=== PATIENT | female | born 1995 | race Caucasian/White ===

== ENCOUNTER 2018-07-04 18:37 | Emergency (ER) | payer OTHER, SELFPAY ==
[2018-07-04 18:39] VITALS: BP 151/106; PULSE 95; RESP 17; TEMP 37.2; O2SAT 96; BMI 42.9
--- NOTE | 2018-07-04 18:59 | ED.DCSUM_ITS ---
- ER Visit Summary Date of Service: 07/04/18 Chief Complaint: Vaginal bleeding History of Present Illness: The patient is a 22 F presents to the emergency department with vaginal bleeding. Patient is approximately 10 weeks gestation. She had a positive test at [facility], but has not followed up with [facility] AND MAINTE[facility]CE [facility]. She states that about an hour ago, she began have some suprapubic cramping. She states that shortly after, she began have vaginal bleeding. She describes it as being heavier than her menstrual period. She has had some small clots. She has been one time before. She states she had a miscarriage about this time. She is only on vitamins. She denies any other medical history. Physical Examination: Vital signs reviewed General: Well-nourished, well-developed Head: Normocephalic, atraumatic Eyes: Pupils equal and reactive, extraocular muscles intact Neck, supple, no lymphadenopathy Heart: Regular rate and rhythm Respiratory: No distress, clear bilaterally Abdomen: Soft, nontender, nondistended, no peritoneal signs Back: Nontender Extremities: Nontender, no edema, no cords Skin: Normal color no rash Neuro: Alert and oriented, no focal or lateralizing deficits Test Results: [] Emergency Department Course and Treatment: The patient has no reproducible abdominal pain. Her major complaint is of cramping and bleeding. IV was established. The patient's blood type was A+. Quant was elevated at greater than 6000. Patient underwent ultrasound. It does show a yolk sac, but no poles. She has complex ovarian cyst. The patient has a history of ovarian fibroids and has had surgery for cyst removal. I do not feel that her symptoms are consistent with ectopic . She has no pain. I do feel that this is missed AB. 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 I did give her a copy of her ultrasound report. I did senior living sales counselor her that she needs to follow -up within the next 48 hours that she may need D&C. Her bleeding is stopped. She has no further pain. I do feel that she is safe for outpatient therapy at this time. She was counseled on concerning symptoms and reasons to return. Treatment Plan: [] Disposition: Discharge Impression: 1. Missed AB This note was generated with [employer] dictation software. It may contain incorrect words, spelling, and punctuation that were not noted in review of the chart prior to signing ED Disposition - Plan for ED Patient: Chief Complaint: Vag Bld, Preg Instructions: ED Miscarriage Incom Referrals: Sebas Marshall [Other] - 2 Days
[2018-07-04] MEDS: 0.9% Normal Saline 1,000 ML 1000 ML IV (19:17)
[2018-07-04 19:31] LABS: Mucous, Urine 0 SEEN /hpf (<or=2+)
[2018-07-04 19:32] LABS: Absolute Lymphocyte Count 2.41 X10^3/ul (0.83-4.51); Basophil# 0.03 X10^3/uL; Basophil% 0.3 % (0-1); Eosinophil# 0.17 X10^3/uL; Eosinophils% 1.8 % (0-5); Hematocrit 39.7 % (37-47); Hemoglobin 13.1 g/dl (12.0-15.0); Lymphocyte # 2.41 X10^3/ul (4.0); Lymphocyte % 25.7 % (19-41); Mean Corpuscular Hgb 27.9 pg (27.0-32.0); Mean Corpuscular Volume 84.6 fL (81-99); Mean Platelet Vol. 9.2 fl (6.2-12.0); Monocyte# 0.72 X10^3/uL; Monocyte% 7.7 % (0-10); Neutrophil # 6.02 X10^3/uL (2.7-7.7); Neutrophil % 64.4 % (47-70); Platelet Count 221 K/mm3 (150-450); RBC Distribution Width CV 12.6 % (11.6-14.6); RBC Distribution Width SD 38.7 fl (35.1-43.9); Red Blood Count 4.69 M/mm3 (4.2-5.4); White Blood Count 9.4 K/mm3 (4.4-11.0)
[2018-07-04 19:33] LABS: POSITIVE COUNT NO; POSITIVE DIFFERENTIAL NO; POSITIVE MORPHOLOGY NO
[2018-07-04 19:41] LABS: Color, Urine Yellow (Yellow); Glucose, Dipstick Normal (Normal); Ketone-Dipstick 5 mg/dl (Negative); Leukocyte Esterase-Dipstick 25 /ul (Negative); Nitrite-Dipstick Negative (Negative); Occult Blood-Urine 250 /ul (Negative); Protein-Dipstick 30 mg/dl (Negative); Urine Bilirubin Dipstick Negative (Negative); Urine Clarity Clear (Clear); Urine Urobilinogen Normal (Normal)
[2018-07-04 19:50] LABS: Red Blood Cells-Urine 0-5 SEEN /hpf (0-5); White Blood Cells 0-5 SEEN /hpf (0-5)
[2018-07-04 19:53] LABS: Bacteria RARE /hpf (None Seen)
[2018-07-04 19:54] LABS: Squamous Epithelial Cells - UA 5-10 SEEN /hpf (5-10)
[2018-07-04 19:59] LABS: hCG Titer Quant., Serum 6585 mIU/mL (<9 non-preg)
[2018-07-04 23:04] VITALS: BP 142/80; PULSE 85; RESP 16; O2SAT 98
== END 2018-07-04 23:06 | disposition home or self-care (01) ==
PROVIDERS: Emergency Provider Emergency Medicine; Family Provider Family Medicine; PCP Family Medicine
DX: O02.1 Missed abortion (principal)
CPT/HCPCS: 76817; 81001; 84702; 85025; 86900; 86901; 96360; 96361; 99283; J7030; A4216

== ENCOUNTER → 2018-09-07 10:12 | Outpatient (CLI) | payer OTHER, SELFPAY ==
[2018-09-07 12:01] LABS: Absolute Lymphocyte Count 1.82 X10^3/ul (0.83-4.51); Absolute Neutrophil Count 3.8 X10^3/uL (2.0-7.7); Basophil# 0.02 X10^3/uL; Basophil% 0.3 % (0-1); Eosinophil# 0.15 X10^3/uL; Eosinophils% 2.4 % (0-5); Hematocrit 40.6 % (37-47); Hemoglobin 13.4 g/dl (12.0-15.0); Lymphocyte # 1.82 X10^3/ul (4.0); Lymphocyte % 28.8 % (19-41); Mean Corpuscular Hgb 28.3 pg (27.0-32.0); Mean Corpuscular Volume 85.7 fL (81-99); Mean Platelet Vol. 10.1 fl (6.2-12.0); Monocyte# 0.49 X10^3/uL; Monocyte% 7.8 % (0-10); Neutrophil # 3.81 X10^3/uL (2.7-7.7); Neutrophil % 60.4 % (47-70); Platelet Count 227 K/mm3 (150-450); RBC Distribution Width CV 12.4 % (11.6-14.6); RBC Distribution Width SD 38.1 fl (35.1-43.9); Red Blood Count 4.74 M/mm3 (4.2-5.4); White Blood Count 6.3 K/mm3 (4.4-11.0)
[2018-09-07 12:11] LABS: POSITIVE COUNT NO; POSITIVE DIFFERENTIAL NO; POSITIVE MORPHOLOGY NO
[2018-09-07 12:24] LABS: Thyroid Stim Hormone (TSH) 1.26 uIU/mL (0.358-3.74)
== END ==
PROVIDERS: Family Provider Family Medicine; PCP Family Medicine; Visit Provider Family Medicine
DX: F32.9 Major depressive disorder, single episode, unspecified (principal)
CPT/HCPCS: 36415; 84443; 85025

== ENCOUNTER 2019-08-13 06:19 | Emergency (ER) | payer OTHER, SELFPAY ==
[2019-08-13 06:20] VITALS: BP 137/89; PULSE 89; RESP 18; TEMP 36.6; O2SAT 100; BMI 37.9
--- NOTE | 2019-08-13 06:29 | US_ITS ---
STUDY: ULTRASOUND OF THE FEMALE PELVIS - COMPLETE REASON FOR EXAM: Female, 24 years old. 5 day history of pelvic pain. History of ovarian cysts and cysts resection. LMP: August 09, 2019. TECHNIQUE: Transvaginal TECHNICAL QUALITY: Adequate. COMPARISON: None. FINDINGS: The uterus is anteverted and is in a midline position. The uterus measures 9.2 cm x 6.1 cm x 4.7 cm. Normal uterine cervix. The endometrium measures 13 mm in thickness, and is hyperechoic. There is no demonstrated endometrial mass. There is no demonstrated myometrial mass. I.U.D. - The patient does not have an I.U.D. The right ovary is visualized. The right ovary measures 6.5 cm x 3.9 cm x 3.5 cm. There are 2 adjacent complex cysts within the ovary. The larger measures 3.1 cm x 2.8 cm by 3.3 cm. These have septations within it suggestive of a hemorrhagic cyst. There is also evidence of a 1.4 cm x 1.8 cm echogenic nodule with shadowing in the right ovary. This is suggestive of fat containing structure most likely representing a dermoid. There is no visualized right adnexal mass or complex lesion. There is normal arterial and normal venous vascularity. The left ovary is visualized. The left ovary measures 7 cm x 4.9 cm x 2.8 cm. 2 cysts are seen. The largest measures 2.3 cm x 2 cm x 1.9 cm. There is also evidence of a 2.9 cm x 2.3 cm x 2.2 cm echogenic nodule in the left ovary. This is suggestive of a dermoid. There is no visualized left adnexal mass or complex lesion. There is normal arterial and normal venous vascularity. There is minimal fluid in the cul-de-sac. Polycystic ovary disease: No. US/Transvaginal Non- IMPRESSION: Complex cysts seen in the right ovary. Simple cysts in the left ovary. Findings suggestive of their margins in both ovaries as described. Electronically Signed: Omar Long, at 9:06 EDT , Service support ,
--- NOTE | 2019-08-13 06:29 | ED.VIS.GEN ---
History of Present Illness Chief Complaint: Female C/O Narrative: Patient is a 24-year-old female who presents with pelvic cramping. She rates this as severe. It feels similar to when she had a miscarriage. She also has a history of ovarian cysts and surgery for dermoid cyst. She began to have pelvic cramping about 40 minutes ago. This has actually already begun to improve. She denies any fevers nausea vomiting. No diarrhea. No vaginal bleeding or discharge. No dysuria frequency or urgency. Her last menstrual period was 14 days ago. She has not taken any medications this morning. Past Medical History - Allergies and Home Meds Allergies/Adverse Reactions: Allergies No Known Allergies Allergy (Verified 08/13/19 06:20) Primary Care Physician: Vi Michel MD [Primary Care Provider] - Past Medical History: - - Ovarian cyst Smoking Status: Current every day smoker Review of Systems All systems negative except as indicated General: Denies: Fever Cardiovascular: Denies: Chest pain Respiratory: Denies: Dyspnea Genitourinary: Reports: - - Pelvic pain Physical Exam Vital Signs/Narrative: Vital Signs Temp Pulse Resp BP Pulse Ox 08/13/19 06:20 97.9 F 89 18 137/89 H 100 Inital Vital Signs reviewed: Yes General: Well nourished Head: Normocephalic Eyes: EOMI ENT: Moist mucous membranes Neck: Supple Cardiovascular: Regular rate, Regular rhythm Respiratory: No distress, CTA bilaterally Abdomen: Soft, - - Suprapubic abdominal tenderness without guarding, without rebound Skin: Normal color Neurological: Alert Psychological: Normal affect Diagnostic/Tx/Re-eval - Medical Decision Making Patient declined analgesics here stating her pain is not like it was 15 minutes ago. UA, test, pelvic ultrasound are pending at the time of this dictation. Results will be signed out to the oncoming physician but if ultrasound is negative or just shows ovarian cyst I anticipate discharge. ED Disposition - Plan for ED Patient: Disposition: Home or Assisted Living Diagnosis: Pelvic pain Instructions: PELVIC PAIN, Unknown Cause Referrals: Vi Michel MD [Primary Care Provider] -
[2019-08-13 06:56] LABS: Mucous, Urine 0 SEEN /hpf (<or=2+); Red Blood Cells-Urine 0 SEEN /hpf (0-5)
[2019-08-13 07:08] LABS: Color, Urine Yellow (Yellow); Glucose, Dipstick Normal (Normal); Ketone-Dipstick Negative (Negative); Leukocyte Esterase-Dipstick Negative /ul (Negative); Nitrite-Dipstick Negative (Negative); Occult Blood-Urine Negative /ul (Negative); Protein-Dipstick 30 mg/dl (Negative); Urine Bilirubin Dipstick Negative (Negative); Urine Clarity Cloudy (Clear); Urine Urobilinogen Normal (Normal)
[2019-08-13 07:09] LABS: Bacteria 2+ /hpf (None Seen); Squamous Epithelial Cells - UA 10-25 SEEN /hpf (5-10); White Blood Cells 0-5 SEEN /hpf (0-5)
[2019-08-13 07:10] LABS: Internal QC Validated? YES +Cl - CLEAR BKGD; Pregnancy, Urine Negative Negative
[2019-08-13 08:34] VITALS: RESP 14
== END 2019-08-13 09:38 | disposition home or self-care (01) ==
LOC: ED 07:12
PROVIDERS: Emergency Provider Emergency Medicine; Family Provider Family Medicine; PCP Family Medicine
DX: R10.2 Pelvic and perineal pain (principal); N83.202 Unspecified ovarian cyst, left side; N83.201 Unspecified ovarian cyst, right side; F17.200 Nicotine dependence, unspecified, uncomplicated
CPT/HCPCS: 76830; 81001; 81025; 99282

== ENCOUNTER 2019-09-23 18:18 | Inpatient (IN) | payer OTHER, SELFPAY ==
[2019-09-21 10:17] LABS: Hematocrit 42.8 % (37-47); Hemoglobin 14.4 g/dL (12.0-15.0); Mean Corp Hgb Conc 33.6 g/dL (32-36); Mean Corpuscular Hgb 28.6 pg (27.0-32.0); Mean Corpuscular Volume 85.1 fL (81-99); Mean Platelet Vol. 10.1 fl (6.2-12.0); Platelet Count 224 K/mm3 (150-450); RBC Distribution Width CV 12.3 % (11.6-14.6); RBC Distribution Width SD 37.7 fl (35.1-43.9); Red Blood Count 5.03 M/mm3 (4.2-5.4); White Blood Count 7.9 K/mm3 (4.4-11.0)
[2019-09-21 10:39] LABS: Prothrombin Time (Protime)PT. 12.9 SECONDS (11.7-14.9)
[2019-09-21 10:40] LABS: Partial Thromboplast Time 31.2 Seconds (24.1-36.2)
--- NOTE | 2019-09-22 13:27 | PCM.HPOB.BLA ---
- Problem List (1) Dermoid cyst of both ovaries Status: Acute History and Physical Date of Admission: 09/23/19 Surgical History and Physical Date: 09/21/2019 Name: FRIEDA ROBBINS Age: 24 Date of : 1995 Frieda Robbins, a 24 year old female 0 0 1 0 0, presents for Diagnostic laparoscopy, minilaparotomy, bilateral ovarian cystectomy, possible oophorectomy on September 23, 2019 at 11:00. -- Pre-Op; US U.S. SENATOR -- Frieda presents here today with mother(Carolina) for missed menses appointment with LMP of 06-12-14 being 6 weeks 5 days and approximate KATHY of 15. 19 y.o. with positive UPT today in office. Plans to deliver at [facility]. They report this was an unexpected as she had a Depo Injection 06-15-14 and then missed her menses in Jul. and started with symptoms and had positive UPT at home. Reports having nausea/vomiting and tender breasts with review of helpful hints for n/v given. Denies spotting/bleeding with review of danger signs and bleeding in . Currently not taking a as this was unexpected and sample of Vitafol Ultra Vitamin was given with Educational [employer]. Uncertain at this point if FOB will be involved with . Admits to smoking and drinking in the last several weeks as she didn't know she was , but adds she hasn't smoked for two days as she can't stand the smell at this time with encouragement given to continue to quit and why. Denies street drug use. SAMREEN as above. unplanned, SUDHA does not yet know about , but has another child and did not plan to become a father again. Pt here with mother and best friend. Pt considering termination. Does not do SBE, denies IPV, feels safe at home. Has nausea and emesis daily. Also complains of vaginal burning and breast tenderness Frieda is here for U.S. SENATOR ultrasound and follow up appt. EAB 08/17/14. She is on OCP at this time, no other medications. She denies any other changes since last visit to this office. TAMARA as above. s/p TOP 08/17, doing well. Denies f/c/n/v/abd pain, bleeding light. Mother reports pt c/o abd pain with cough or sneezing. She is concerned about cost of surgical removal of ovarian cyst. Frieda is here for evaluation of severe pelvic pain that started on Friday. Went to ER and does not feel they really did anything for her. Records obtained and reviewed, UA, UPT, and pelvic u/s done. Will review records with Dr CORONADO. Pain is persitent, taking OTC NSAID. She had cystectomy done in 2013 for dermoid and again dermoid suggested on pelvic u/s. She is currently using condoms for control and has had a new partner x6 months. LMT Frieda is being seen for pre op visit. Pt to have Dx Laparoscopy with Bilateral Ovarian Cystectomy with Dr. Cassius Jaimes on 09-23-19.; Surgery due to pelvic pain and ovarian cysts. Medications and allergies are up to date. Consents signed and surgery information given to pt. AM as above. hx bilateral recurrent dermoid cysts in ovary with intermittent abdominal pain. selina pelvic pain which began 08/13. Frieda claims it started suddenly and has been present 5 days. It is located in the lower abdomen. Severity is moderate Associated signs and symptoms are none. MEDICATIONS HISTORY: Patient is also takin. Prozac 40 mg capsule, daily ALLERGIES: NKDA Infections - Vaccine for Chickenpox Illnesses - no serious past illnesses Accidents - None Hospitalizations - None 10 cm ovarian cyst; Review of Systems: GENERAL - Denies fever, or chills SKIN - Denies skin changes EYES - Denies visual changes EARS - Denies difficulty hearing NOSE - Denies nasal congestion or bleeding MOUTH - Denies sore throat or difficulty swallowing NECK - Denies pain or swelling RESPIRATORY - Denies shortness of breath or wheezing CARDIOVASCULAR - Denies palpitations or chest pain GASTROINTESTINAL - Denies nausea, vomiting, diarrhea, constipation GENITOURINARY - Denies dysuria, frequency of urination, incontinence of urine MUSCULOSKELETAL - Denies joint or muscle pain NEUROLOGICAL - Denies localized numbness or weakness PSYCHIATRIC - Denies depression or anxiety ENDOCRINE - Denies heat or cold intolerance, weight loss or gain HEMATO-IMMUNOLOGIC - Denies excesive bleeding with cuts SOCIAL HISTORY: Alcohol Use - RARELY Smoking - occasional--advised to quit Diet - needs improvement Lifestyle - moderate stress lifestyle and single Exercise - none Seat Belt Use - always 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 MENSTRUAL HISTORY: LMP Known?- Approximate-Month KnownAmount/Duration - 6 days, Regularity - Regular, LMP - 09/20/19, Age Onset Menarche - 12 PAST PREGNANCIES: Total Pregnancies - 1; Full Term Pregnancies - 0; Premature - 0; Abortions, Induced - 1; Abortions, Spontaneous - 0; Ectopics - 0; Multiple Births - 0; Living Children - 0 SURGICAL HISTORY: 1. 08/17/2014 elective ; - 2. Ovarian cystectomy, bilaterally, 2013 ; - PHYSICAL EXAM BP- 110/80 Sitting, Right arm, large cuff Temp- 99.0 Taken Orally Weight- 261.40901 lbs Height- 69.00 inch BMI:38.65 CONSTITUTIONAL - NAD, well nourished, and well developed SKIN - No rash, lesions, or ulcers HEENT - normocephalic, atraumatic, sclerae anicteric LUNGS - CTA x2 without wheezes, crackles or rales CARDIAC - Regular rate and rhythm without rubs, murmurs, or gallops ABDOMEN - Without hepatosplenomegaly, distention, masses, rebound, or guarding; normal bowel sounds; no hernias EXTREMITIES - No edema or calf tenderness NEUROLOGICAL - normal gait, normal balance, normal motor PSYCHIATRIC - A and O to time, place, person, mood and affect Labs & Testing WBC 7.9 K/mm3 (4.4-11.0) 09/21/19 09:45 RBC 5.03 M/mm3 (4.2-5.4) 09/21/19 09:45 Hgb 14.4 g/dL (12.0-15.0) 09/21/19 09:45 Hct 42.8 % (37-47) 09/21/19 09:45 MCV 85.1 fL (81-99) 09/21/19 09:45 MCH 28.6 pg (27.0-32.0) 09/21/19 09:45 MCHC 33.6 g/dL (32-36) 09/21/19 09:45 RDW Std Deviation 37.7 fl (35.1-43.9) 09/21/19 09:45 RDW Coeff of Bibiana 12.3 % (11.6-14.6) 09/21/19 09:45 Plt Count 224 K/mm3 (150-450) 09/21/19 09:45 MPV 10.1 fl (6.2-12.0) 09/21/19 09:45 PT 12.9 SECONDS (11.7-14.9) 09/21/19 09:45 INR 1.0 09/21/19 09:45 APTT 31.2 Seconds (24.1-36.2) 11 09:45 Blood Type A POSITIVE 09/21/19 09:45 Antibody Screen NEGATIVE 09/21/19 09:45 ASSESSMENT/PLAN: 1. Other Ovarian Cyst, Left Side, Other Ovarian Cyst, Right Side and Ovarian Cyst Nos CT c/w bilateral dermoid cysts Plan for laparoscopy bilateral ovarian cystectomy with minilaparotomy Procedural preparation, r/b/i reviewed, postop course discussed Consents signed NPO @ [facility] prior Pt given opportunity to ask questions and questions answered to her satisfaction Preop labs pending
[2019-09-23] VITALS (8 sets, daily range): BP systolic 102–124; BP diastolic 57–72; PULSE 58–79; RESP 16–18; TEMP 36.2–36.8; O2SAT 95–100; BMI 38.5; BMI 39.6
[2019-09-23 11:37] LABS: Internal QC Validated? YES +Cl - CLEAR BKGD; Pregnancy, Urine Negative Negative
[2019-09-23] MEDS: Heparin Injection (Vial) 5,000 UNIT/ML VIAL 5000 UNIT SC (11:45)
[2019-09-23] MEDS: Lactated Ringers 1,000 ML 125 ML IV ×2 (12:03→19:05)
--- NOTE | 2019-09-23 13:00 | OV_PTH ---
PATIENT: FRITZ ROBBINS LOC: [facility] U#:[id number] AGE/SX: 24/F ROOM: [facility] RE09/23/[address]: Dr. Yoselyn Jaimes MD : 1995 BED: 1 DIS: 09/25/2019 SPEC #: [id number] RECD: 09/24/19 09:00 STATUS: HANNAH JAMES #: [id number] MACARENA: 09/23/19 13:[address]: Yoselyn Carbajal DEPT: SURGICAL PATHOLOGY RECD BY: Harrison Brown ENTERED: 09/24/19 09:54 SP TYPE: OVARY OTHR DR: Dr. Vi Michel MD Tissues: A - OVARIAN CYST B - OVARIAN CYST Procedures: Surgery Specimen Level V HEADER OPERATION: Diagnostic lap converted to laparotomy, bilateral ovarian cysts PRE-OP DIAGNOSIS: Bilateral dermoid cysts TISSUE SUBMITTED: A - Right ovarian dermoid, B - Left ovarian dermoid MICROSCOPIC DIAGNOSIS A. Right ovarian dermoid cyst: Mature cystic teratoma (dermoid cyst). B. Left ovarian dermoid cyst: Mature cystic teratoma (dermoid cyst). NABEEL:suki 09/27/19 MICROSCOPIC DESCRIPTION Slides are reviewed. GROSS DESCRIPTION A - Received in fixative is one container labeled with the patient's name and designated right ovarian dermoid. The specimen consists of multiple irregular fragments of pink-coronado soft tissue ranging in size from 1.5 to 3.5 cm. Also present in the specimen container are hair and adherent fibrinoid-like material. No orientation is provided. Motor Coach Operator sections are submitted in two cassettes. B - Received in fixative is one container labeled with the patient's name and designated left ovarian dermoid. The specimen consists of multiple irregular fragments of pink-coronado soft tissue ranging in size from 2 to 4 cm. Motor Coach Operator sections are submitted in two cassettes. / AM:suki 09/24/19 TC:1 CPT: 12703 x2
[2019-09-23] MEDS: Bupivacaine Mpf 0.5% 30 ML VIAL (14:00)
[2019-09-23] MEDS: Ketorolac 30 MG/ML Syringe IV (18:00)
--- NOTE | 2019-09-23 18:22 | OP.PCM_ITS ---
Problem List (1) Dermoid cyst of both ovaries Status: Acute (2) Postprocedural pelvic peritoneal adhesions Status: Acute Report of Operation Date of Procedure: 09/23/19 Pre-Operative Diagnosis: Bilateral dermoid ovarian cyst. Lower abdominal pain Post-Operative Diagnosis: Lateral dermoid ovarian cyst. Lower abdominal pain. Pelvic adhesions Surgery/Procedure Performed:: Diagnostic laparoscopy, laparotomy, extensive pelvic adhesiolysis, bilateral ovarian cystectomies Description of Surgical Findings:: Obliterated posterior cul-de-sac with bilateral ovarian dermoid cysts. Normal- appearing uterus and tubes bilaterally box folding machine operator: Annia Sutherland box folding machine operator: Meghana Dumont Type of Anesthesia:: General Anesthesiologist: Frankie Mak dorota Specimen's removed: Right ovarian dermoid nodules and cyst wall. Left ovarian dermoid nodules and cyst wall Drains: Hall 170 ml Estimated Blood Loss (mL): 450 ml Fluids Replaced: 3500ml Description of Procedure: Indications 24-year-old para 1 para 0-0-1-0 presents for scheduled diagnostic laparoscopy with mini laparotomy for bilateral ovarian dermoid cystectomy. The patient has a history of prior laparotomy with cystectomy. She currently developed abdominal pain and CT of the abdomen pelvis confirmed recurrence of bilateral cysts. Procedural risks, benefits, indications and alternatives were reviewed at length. Informed consent was obtained. Procedure: Patient was taken to the operating room and signed and was performed. She is placed in the dorsal supine position and induced under general anesthesia. She was then repositioned to dorsolithotomy and examination under anesthesia performed. Her arms were tucked at her sides. The abdomen and perineum were prepped and draped in sterile fashion. Straight catheterization of the bladder was performed. The patient was placed in the high lithotomy weighted speculum placed into the vagina and the cervix grasped using single tooth tenaculum and uterus sounded. A ZUMI uterine manipulator was placed and secured. The patient was placed into low lithotomy attention turned to the abdomen. An infraumbilical incision was made and varies needle placed with no successful hanging drop test thus laparoscopic entry was performed at the inferior umbilicus confirming entry into the abdominal cavity. A second incision then port site was placed in the left lower quadrant under transillumination. The abdomen and pelvis were explored. There was obliteration of the posterior cul-de-sac with the ovaries kissing at the midline with dense adhesions. The laparoscopy was then aborted to proceed with laparotomy. The ports were removed, the abdomen desufflated and the incisions closed using 4-0 Monocryl. A Pfannenstiel incision was made entry into the intra-abdominal cavity. The medial rectus muscles were transected using the Bovie scarring prevented exposure. Initially placed the Harry retractor however exposure was necessary. The Harry was removed, the bowel was packed and the Cabot retractor was placed. She was turned to the right adnexa. Adhesions were bluntly dissected and sharply dissected however the most inferior portion of the ovary remains socked into the lower cul-de-sac. The ovarian cortex was incised using the Bovie exposing dermoid cyst contents with contained rupture, contents were aspirated. The first nodule was enucleated with the cyst wall. A second nodule and cyst wall were also enucleated. Compression was applied and a few areas of areas of small capillary bleeding were controlled using the Bovie. It was placed for additional hemostasis and the ovarian cortex was reapproximated using 3-0 Vicryl running suture. Given the extensive time it required to perform the procedure due to the patient's body habitus and extent of the adhesions a catheter was placed at this time. Attention was turned to the left adnexa. Sharp and blunt dissection of the adhesions were performed however again the was inferior pole of the ovary remained soft into the deep cul-de-sac overlying the rectum. The ovary was incised using the Bovie. The dermoid nodules were enucleated and the cyst wall also removed. FloSeal was placed within the enucleation site for additional hemostasis and the ovarian cortex reapproximated using 3-0 Vicryl. Additional FloSeal was placed on the outer portion of the left ovary suture line and Interceed applied over this area and around the left ovary. In similar fashion Interceed was also applied over the right ovary. Of note, there was no significant rupture of dermoid cyst contents during procedure. The peritoneum and rectus muscles were closed using 0 PDS. The fascia was closed using #1 strata fix. The subcutaneous tissue was closed using 2 layers of 2-0 Vicryl. The skin was closed using 4-0 Monocryl. The form Mepilex was placed over the laparotomy site. OpSite dressings were placed over the topic sites. The Hall catheter was removed. The patient was awakened, extubated and transferred to the recovery room without complication. Sponge, needle and instrument counts were correct x2. The patient tolerated the procedure well. - Complications None - Admit VTE Documentation VTE Present on Admission: No VTE Mechan Device Prophylaxis: SCD's VTE Pharm Prophylaxis ordered?: No
[2019-09-23] MEDS: Acetaminophen 500 MG Tablet 1000 MG PO (21:46)
[2019-09-23] MEDS: FLUoxetine 20 MG Capsule PO (22:14)
[2019-09-24] MEDS: 0.9% Saline Lock 10 ML Syringe IV ×2 (00:22→06:19)
[2019-09-24] MEDS: Ketorolac 30 MG/ML Syringe IV (00:22)
[2019-09-24] MEDS: oxyCODONE 5 MG Tablet PO ×5 (03:38→18:41)
[2019-09-24 05:45] VITALS: BP 103/69; PULSE 94; RESP 18; TEMP 36.8; O2SAT 98
[2019-09-24] MEDS: Ketorolac 10 MG Tablet PO ×4 (06:08→23:19)
[2019-09-24] MEDS: Heparin Injection (Vial) 5,000 UNIT/ML VIAL 5000 UNIT SC ×3 (06:15→21:33)
[2019-09-24 06:57] VITALS: O2SAT 97
[2019-09-24 07:11] LABS: Hematocrit 38.7 % (37-47); Hemoglobin 12.9 g/dL (12.0-15.0); Mean Corp Hgb Conc 33.3 g/dL (32-36); Mean Corpuscular Hgb 28.7 pg (27.0-32.0); Mean Corpuscular Volume 86.2 fL (81-99); Mean Platelet Vol. 9.8 fl (6.2-12.0); Platelet Count 203 K/mm3 (150-450); RBC Distribution Width CV 12.2 % (11.6-14.6); RBC Distribution Width SD 38.6 fl (35.1-43.9); Red Blood Count 4.49 M/mm3 (4.2-5.4); White Blood Count 14.4 K/mm3 (4.4-11.0)
[2019-09-24 07:32] LABS: Creatinine, Serum 0.82 mg/dL (0.55-1.02); EST Glomerular Filtration Rate 91 mL/min (>60); Est Glom Filt Rate - Afr Amer 110 mL/min (>60); Estimated Creatinine Clearance 110.56 ml/min
[2019-09-24 10:00] VITALS: BP 113/58; PULSE 84; RESP 18; TEMP 36.7; O2SAT 97
[2019-09-24 15:39] VITALS: BP 102/56; PULSE 83; RESP 18; TEMP 36.6; O2SAT 96
[2019-09-24] MEDS: Acetaminophen 500 MG Tablet 1000 MG PO (18:41)
[2019-09-24 21:19] VITALS: BP 98/53; PULSE 70; RESP 18; TEMP 36.7; O2SAT 96
[2019-09-24] MEDS: FLUoxetine 20 MG Capsule PO (21:33)
[2019-09-25 03:05] VITALS: BP 107/53; PULSE 82; RESP 18; TEMP 36.6; O2SAT 98
[2019-09-25] MEDS: Ketorolac 10 MG Tablet PO (05:53)
[2019-09-25] MEDS: Heparin Injection (Vial) 5,000 UNIT/ML VIAL 5000 UNIT SC (05:53)
[2019-09-25] MEDS: oxyCODONE 5 MG Tablet PO (08:18)
[2019-09-25 09:00] VITALS: BP 99/57; PULSE 87; RESP 20; TEMP 36.6; O2SAT 97
--- NOTE | 2019-09-25 09:56 | PCM.PN.OB ---
Patient Problems: Active and Suspected Problems Postprocedural pelvic peritoneal adhesions (Acute) Subjective: POD#2 S/P Diagnostic laparoscopy, laparotomy, extensive pelvic adhesiolysis, bilateral ovarian cystectomies Objective: POD#2 Laparoscopy converted to laparotomy extensive adhesiolysis, bilateral ovarian cystectomies (dermoids) Doing well and eager to go home. Tolerating diet w/o N/V. Pain control adequate. States able to take Tylenol and oxycodone at home, but stomach upset with either ibuprofen or Aleve. 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 Aware no heavy lifting and of activity restrictions. Advised may return half days and if tolerated, work way back to longer days. She will be off next week, but states cannot afford to continue off work. 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 Has dogs also but dogs in care of other family/ friends while she is recovering. Would like IV saline lock out POWER - Physical Exam Vitals/I&O's: Vital Signs Temp Pulse Resp BP Pulse Ox 97.9 F 82 18 107/53 L 98 09/25/19 03:05 09/25/19 03:05 09/25/19 03:05 09/25/19 03:05 09/25/19 03:05 Oxygen Delivery Method Room Air Weight: 121.591 kg Body Mass Index (BMI) 39.6 Intake and Output for Last 24 Hours 09/23/19 09/24/19 09/25/19 23:59 23:59 23:59 Intake Total 5000 / 5000 2045.83 / 2045.83 1100 / 1100 Output Total 2150 / 2150 1550 / 1550 Balance 2850 / 2850 495.83 / 495.83 1100 / 1100 General: Alert, Oriented x3, Cooperative, No apparent distress HEENT: Atraumatic, EOMI Neck: Supple Abdomen: Soft - Mildly tender, guarding c/w postop status. Flat , nondistended. Skin: Incision - Mepilex CDI. Neurological: Cranial nerves II-XII grossly intact Psych/Mental Status: Normal Affect, Appropriate Current Medications Acetaminophen (Tylenol) 1,000 mg PO Q8H PRN PRN PRN Reason: Pain Score 1-3/10 or Fever Last Admin: 09/24/19 18:41 Dose: 1,000 mg Documented by: Fluoxetine HCl (Prozac) 20 mg PO QHS [facility] Last Admin: 09/24/19 21:33 Dose: 20 mg Documented by: Heparin Sodium (Porcine) (Heparin Na) 5,000 unit SC Q8 [facility] Last Admin: 09/25/19 05:53 Dose: 5,000 unit Documented by: Hydromorphone HCl (Dilaudid Inj) 0.5 - 1.5 mg IV Q3H PRN PRN PRN Reason: Pain Score 4-10/10 Sodium Chloride () 250 mls @ 15 mls/hr IV .[id number] PRN PRN Reason: Saline Flush Ketorolac Tromethamine (Toradol) 10 mg PO Q6 [facility] Stop: 09/28/19 06:01 Last Admin: 09/25/19 05:53 Dose: 10 mg Documented by: Ondansetron HCl (Zofran) 4 mg IV Q4H PRN PRN PRN Reason: NAUSEA Oxycodone HCl (Oxyir) 5 - 10 mg PO Q4H PRN PRN PRN Reason: Pain Score 4-10/10 Last Admin: 09/25/19 08:18 Dose: 10 mg Documented by: Sodium Chloride () 10 - 40 ml IV UD PRN PRN Reason: SALINE FLUSH Last Admin: 09/24/19 06:19 Dose: 10 ml Documented by: Medical Necessity - Tobacco Use Smoking Status: Current every day smoker Tobacco Use: Cigarettes Assessment/Plan All Active Problems Dermoid cyst of both ovaries (Acute) Postprocedural pelvic peritoneal adhesions (Acute) POD#2 Laparoscopy converted to laparotomy for lysis of adhesions and bilateral ovarian cystectomies. Doing well. Requests dischg home. AVSS exam benign. Home today. Off work, Activity restrictions reviewed. RTO as scheduled for postop incision check.
--- NOTE | 2019-09-25 09:57 | DCINST_ITS ---
- Discharge Diagnoses Current Active Problems: Current Active and Chronic Problems Postprocedural pelvic peritoneal adhesions (Acute) You will use the following diet at home:: No restrictions, Regular Discharge Activity: May not drive while taking narcotic pain medications., May Shower Return to work on:: 10/04/19 - 1/2 days for first week , no heavy lifting more than 20# for 4-6 wks. May resume sexual activity in: 4-6 weeks Lifting Restrictions: 20# or less for 4-6 wks to allow healing. Call your doctor if you observe: Fever of 101 or Higher, Inability to have a bowel movement, Using more than one pad per hour, Uncontrolled pain Suture Line Care: Avoid Pulling/Pushing Change Dressing in (Days):: 7 Remove Dressing in (days):: 7 Cleanse incision/area with: Soap & Water, Keep Dressing Clean & Dry Additional Instructions: You may take Tylenol 500 mg tabs one or two every 8 hr for pain. Add OxyIR 5 mg by mouth every 4 hrs as needed for pain. Move around at least 5 times daily in the first few weeks after surgery to help prevent blood clots in your legs. You may continue to use the abdominal binder if it is comfortable to wear. Remove binder if uncomfortable. Allergies/Adverse Reactions: Allergies No Known Allergies Allergy (Verified 09/16/19 07:55) Medications to take at Discharge Fluoxetine HCl [Prozac] 20 mg PO QHS 09/16/19 Docusate Sodium [Colace] 100 mg PO BID #30 cap 09/25/19 Oxycodone [Oxyir] 5 mg PO Q6H PRN PRN 5 Days #20 tab 09/25/19 Polyethylene Glycol 3350 [Miralax] 17 gm PO DAILY PRN #14 packet 09/25/19 The following prescriptions were given: Docusate Sodium [Colace] 100 mg PO BID #30 cap Transmission Status: Sent to [facility] Polyethylene Glycol 3350 [Miralax] 17 gm PO DAILY PRN #14 packet PRN Reason: Constipation Transmission Status: Sent to [facility] Oxycodone [Oxyir] 5 mg PO Q6H PRN PRN 5 Days #20 tab PRN Reason: Mod-Severe Pain (4-08/19) Prescription Printed Primary Care Physician: Vi Michel MD [Primary Care Provider] - Test Results: Test results from this visit will be discussed in further detail at your follow- up appointment, if applicable. Please Follow Up With: Yoselyn Damian MD - [phone] When: in 2 wk as planned for postop incision check up Proposed Discharge Date: 09/25/19
--- NOTE | 2019-09-25 10:14 | PCM.WORK.EX ---
Work/School Excuse Work/School Excuse for:: Patient Please excuse this person from:: Work From: 09/23/19 - surgery through: 10/04/19 - may return 1/2 days, no heavy lifting. Restrictions: Light Duty, No Heavy Lifting - limit to under 20# for 4-6 wks -- until 10/25/19 to 11/08/19
--- NOTE | 2019-09-25 10:17 | DS.PCM_ITS ---
Discharge Date and Diagnosis - Problem List Patient Problems: Active and Suspected Problems Postprocedural pelvic peritoneal adhesions (Acute) Date of Admission: 09/23/19 Date of Discharge: 09/25/19 - Primary Discharge Diagnosis Active and Suspected Problems Postprocedural pelvic peritoneal adhesions (Acute) Hospital Course and Treatment Operations: - - Laparoscopy, converted to laparotomy Extensive lysis of adhesions and bilateral ovarian cystectomy. Summary of Care Provided: The patient is a 24 year old female para 1 para 0-0-1-0 presents for scheduled diagnostic laparoscopy with mini laparotomy for bilateral ovarian dermoid cystectomy. The patient has a history of prior laparotomy with cystectomy. She currently developed abdominal pain and CT of the abdomen pelvis showed recurrent dermoid cysts. Admitted on 09/23/19 for surgery. Diagnostic laparoscopy, then converted to open laparotomy, due to pelvic adhesions. Extensive pelvic adhesiolysis, bilateral ovarian cystectomies performed. Findings at time of procedure: Obliterated posterior cul-de-sac with bilateral ovarian dermoid cysts. Normal-appearing uterus and tubes bilaterally Right ovarian dermoid nodules and cyst wall. Left ovarian dermoid nodules and cyst wall EBL: 450 ml Procedure was uncomplicated. Patient has had no complications postop. Hgb stable. Exam benign. AVSS. Requests dischg home on POD#2. 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 Discharged to home POD#2 in stable condition. Discharge instructions, activity restrictions and wound care reviewed. All questions answered and RX sent in for pain med for pt to [employer] at [facility] outpatient pharmacy prior to her discharge home. Patient Problems: Active and Suspected Problems Postprocedural pelvic peritoneal adhesions (Acute) - Physical Exam Vitals/I&O's: Vital Signs Temp Pulse Resp BP Pulse Ox 97.9 F 82 18 107/53 L 98 09/25/19 03:05 09/25/19 03:05 09/25/19 03:05 09/25/19 03:05 09/25/19 03:05 Oxygen Delivery Method Room Air Weight: 121.591 kg Body Mass Index (BMI) 39.6 Intake and Output for Last 24 Hours 09/23/19 09/24/19 09/25/19 23:59 23:59 23:59 Intake Total 5000 / 5000 2045.83 / 2045.83 1100 / 1100 Output Total 2150 / 2150 1550 / 1550 Balance 2850 / 2850 495.83 / 495.83 1100 / 1100 Current Medications Acetaminophen (Tylenol) 1,000 mg PO Q8H PRN PRN PRN Reason: Pain Score 1-3/10 or Fever Last Admin: 09/24/19 18:41 Dose: 1,000 mg Documented by: Fluoxetine HCl (Prozac) 20 mg PO QHS [facility] Last Admin: 09/24/19 21:33 Dose: 20 mg Documented by: Heparin Sodium (Porcine) (Heparin Na) 5,000 unit SC Q8 [facility] Last Admin: 09/25/19 05:53 Dose: 5,000 unit Documented by: Hydromorphone HCl (Dilaudid Inj) 0.5 - 1.5 mg IV Q3H PRN PRN PRN Reason: Pain Score 4-10/10 Sodium Chloride () 250 mls @ 15 mls/hr IV .[id number] PRN PRN Reason: Saline Flush Ketorolac Tromethamine (Toradol) 10 mg PO Q6 [facility] Stop: 09/28/19 06:01 Last Admin: 09/25/19 05:53 Dose: 10 mg Documented by: Ondansetron HCl (Zofran) 4 mg IV Q4H PRN PRN PRN Reason: NAUSEA Oxycodone HCl (Oxyir) 5 - 10 mg PO Q4H PRN PRN PRN Reason: Pain Score 4-10/10 Last Admin: 09/25/19 08:18 Dose: 10 mg Documented by: Sodium Chloride () 10 - 40 ml IV UD PRN PRN Reason: SALINE FLUSH Last Admin: 09/24/19 06:19 Dose: 10 ml Documented by: Discharge Activity: May not drive while taking narcotic pain medications., May Shower Return to work on:: 10/04/19 - 1/2 days for first week , no heavy lifting more than 20# for 4-6 wks. May resume sexual activity in: 4-6 weeks Call your doctor if you observe: Fever of 101 or Higher, Inability to have a bowel movement, Using more than one pad per hour, Uncontrolled pain Suture Line Care: Avoid Pulling/Pushing Change Dressing in (Days):: 7 Remove Dressing in (days):: 7 Cleanse incision/area with: Soap & Water, Keep Dressing Clean & Dry Home Medications: Medications to take at Discharge Fluoxetine HCl [Prozac] 20 mg PO QHS 09/16/19 Docusate Sodium [Colace] 100 mg PO BID #30 cap 09/25/19 Oxycodone [Oxyir] 5 mg PO Q6H PRN PRN 5 Days #20 tab 09/25/19 Polyethylene Glycol 3350 [Miralax] 17 gm PO DAILY PRN #14 packet 09/25/19 Following Prescrptions Were Given to Patient: Docusate Sodium [Colace] 100 mg PO BID #30 cap Transmission Status: Sent to [facility] Polyethylene Glycol 3350 [Miralax] 17 gm PO DAILY PRN #14 packet PRN Reason: Constipation Transmission Status: Sent to [facility] Oxycodone [Oxyir] 5 mg PO Q6H PRN PRN 5 Days #20 tab PRN Reason: Mod-Severe Pain (4-08/19) Prescription Printed Primary Care Physician: Vi Michel MD [Primary Care Provider] - Please Follow Up With: Yoselyn Damian MD - [phone] When: in 2 wk as planned for postop incision check up Medical Necessity - Tobacco Use Smoking Status: Current every day smoker Tobacco Use: Cigarettes Meaningful Use Info Meaningful Use Diagnoses (Choose all that apply): None applicable
[2019-09-25 11:10] VITALS: BP 103/60; PULSE 80; RESP 20; TEMP 37.1; O2SAT 97
== END 2019-09-25 11:25 | disposition home or self-care (01) | DRG 743 ==
LOC: PCU 19:58
PROVIDERS: Admitting Provider Obstetrics & Gynecology; Family Provider Family Medicine; PCP Family Medicine; Referring Provider Obstetrics & Gynecology; Visit Provider Obstetrics & Gynecology
PROC: 0UN20ZZ Release Bilateral Ovaries, Open Approach (ICD-10-PCS; CPT 49320; principal; 2019-09-23 12:45)
DX: D27.0 Benign neoplasm of right ovary (principal); D27.1 Benign neoplasm of left ovary; N73.6 Female pelvic peritoneal adhesions (postinfective); F17.210 Nicotine dependence, cigarettes, uncomplicated; Z79.899 Other long term (current) drug therapy
CPT/HCPCS: 36415; 81025; 82565; 85027; 85610; 85730; 86850; 86900; 86901; 88305; 88307; 99251; 99406; J7120; A4216; G0463; J2405

== ENCOUNTER → 2019-10-06 10:54 | Outpatient (CLI) | payer OTHER, SELFPAY ==
[2019-09-23 20:40] VITALS: BMI 39.6
[2019-10-06 10:58] LABS: Mucous, Urine 0 SEEN /hpf (<or=2+); Red Blood Cells-Urine 0 SEEN /hpf (0-5); White Blood Cells 0 SEEN /hpf (0-5)
[2019-10-06 13:43] LABS: Color, Urine Yellow (Yellow); Glucose, Dipstick Normal (Normal); Ketone-Dipstick Negative (Negative); Leukocyte Esterase-Dipstick Negative /ul (Negative); Nitrite-Dipstick Negative (Negative); Occult Blood-Urine Negative /ul (Negative); Protein-Dipstick Negative (Negative); Specific Gravity, Urine 1.015 (1.002-1.030); Urine Bilirubin Dipstick Negative (Negative); Urine Clarity Clear (Clear); Urine Urobilinogen Normal (Normal)
[2019-10-06 13:50] LABS: Squamous Epithelial Cells - UA 0-5 SEEN /hpf (5-10)
[2019-10-06 13:51] LABS: Bacteria RARE /hpf (None Seen)
== END ==
PROVIDERS: Visit Provider Obstetrics & Gynecology
DX: N39.0 Urinary tract infection, site not specified (principal); Z98.890 Other specified postprocedural states
CPT/HCPCS: 81001; 87086; 87088

== ENCOUNTER 2019-12-08 16:58 | Emergency (ER) | payer OTHER, SELFPAY ==
[2019-09-23 20:40] VITALS: BMI 39.6
[2019-12-08 16:59] VITALS: BP 138/95; PULSE 92; RESP 14; TEMP 36.7; O2SAT 97; BMI 40.0
--- NOTE | 2019-12-08 17:35 | CT_ITS ---
STUDY: CT ABDOMEN AND PELVIS WITHOUT CONTRAST REASON FOR EXAM: Female, 24 years old. RLQ PAIN, OVARIAN CYST REMOVED 2 MO AGO. RADIATION DOSAGE (If Supplied By Facility): CTDIvol = ( 18.58 ) mGy, DLP = ( 1237.59 ) mGycm TECHNIQUE: Transaxial images were obtained from the dome of the diaphragm to the symphysis pubis without oral contrast, and without intravenous contrast. Sagittal and coronal images were reconstructed. Individualized dose optimization techniques were used for this CT. COMPARISON: None. FINDINGS: The visualized lung bases are unremarkable. The visualized portions of the heart are within normal limits. Normal liver. Normal gallbladder and extrahepatic biliary system. Normal spleen. Normal pancreas. Normal bilateral adrenal glands. Normal right kidney. Normal left kidney. Normal visualized stomach. Mild diffuse ileus pattern with fecal retention throughout the colon.. The appendix is visualized and appears normal. Normal abdominal aorta. Normal inferior vena cava. Normal retroperitoneum. Incompletely distended thick-walled bladder likely of no significance Uterus is deviated slightly towards the left. Immediately posterior to the uterus there appears to be a large multi septated fluid density in association with fatty densities bilaterally raising question of hydrosalpinx and possible bilateral ovarian dermoids. Pelvic sonogram or MRI would be helpful for further evaluation Normal abdominal wall. Normal osseous structures. CT/Abdomen/Pelvis W IV Cont ONLY IMPRESSION: Large multi septated fluid density within the cul-de-sac with associated bilateral fatty densities raising question of ovarian dermoids. Markedly distended hydrosalpinx less likely but not excluded. Pelvic ultrasound or MRI is recommended for further assessment Electronically Signed: Luisito Roque MD at 19:02 EST , Service support ,
--- NOTE | 2019-12-08 17:40 | ED.DCSUM_ITS ---
History of Present Illness Chief Complaint: Abd Pain Narrative: She presents for evaluation of right lower quadrant abdominal pain. Patient tells me that symptoms began a couple days ago as a slight ache on the right lower quadrant. She noted that today it became worse and she had nausea vomiting this morning and this afternoon. She has had some chills. States this felt similar to her ovarian cyst for which she had surgery on 2 months ago. So she called her NURSING HOME ADMINISTRATOR and they referred her to primary care. Primary care referred her to the emergency department. Patient states she feels worse sitting in a chair. No rashes. No urinary symptoms. Normal bowel movements. Past Medical History - Allergies and Home Meds Allergies/Adverse Reactions: Allergies No Known Allergies Allergy (Verified 12/08/19 17:02) Primary Care Physician: Vi Michel MD [Primary Care Provider] - Smoking Status: Current every day smoker Review of Systems General: Denies: Chills, Fever, Sweats Eyes: Denies: Visual changes - bilaterally, Diplopia ENT: Denies: Rhinorrhea, Sore throat Cardiovascular: Denies: Chest pain, Palpitations Respiratory: Denies: Dyspnea, Cough, Dyspnea on exertion Gastrointestinal: Reports: Abdominal pain, Nausea, Vomiting. Denies: Diarrhea, Constipation, Melena, Hematochezia Genitourinary: Denies: Dysuria, Hematuria, Frequency Musculoskeletal: Denies: Back pain, Extremity Pain Skin: Denies: Rash, Wounds Neurological: Denies: Headache, Weakness, Numbness Physical Exam Vital Signs/Narrative: Vital Signs Temp Pulse Resp BP Pulse Ox 12/08/19 16:59 98.1 F 92 14 138/95 H 97 Inital Vital Signs reviewed: Yes General: Well nourished, Well developed, No Acute Distress Head: Normocephalic, Atraumatic Eyes: Perrl, EOMI ENT: Moist mucous membranes, No rhinorrhea Neck: Supple, Nontender Cardiovascular: Regular rate, Regular rhythm, No murmurs Respiratory: No distress, CTA bilaterally, Chest nontender Abdomen: Soft, Nondistended, Normal bowel sounds, Tender, Guarding. Negative for: Rebound tenderness Back: Nontender, Normal Inspection Extremities: Nontender, No edema Skin: Normal color, No rash Neurological: Alert, Oriented x3, Cranial nerves II-XII grossly intact, Normal Strength, Normal Sensation Psychological: Normal affect, Normal Mood Diagnostic/Tx/Re-eval - Medical Decision Making Sick labs were negative. CT down pelvis did not demonstrate any appendicitis. CT demonstrated large multiseptated fluid densities in the cul-de-sac probably ovarian dermoids which would be consistent with her history. But ultrasound did not demonstrate any torsion. Confirmation of what appears to be dermoid cyst was obtained. I spoke with Dr. Pate as the patient had been in contact with her NURSING HOME ADMINISTRATOR earlier today. We will discharge her home with pain control and follow-up in the office. ED Disposition - Plan for ED Patient: Disposition: Home or Assisted Living Diagnosis: Dermoid cyst of both ovaries Prescriptions: Hydrocodone Bitart/Apap 5-325 [[place] 5MG-325MG] 1 tab PO Q6H PRN PRN 3 Days #12 tab PRN Reason: Pain Prescription Printed Referrals: Yoselyn Damian MD [STAFF PHYSICIAN] - As soon as possible
[2019-12-08] MEDS: Ondansetron 4 MG/2 ML Vial IV (17:48)
[2019-12-08] MEDS: Morphine 4 MG/ML Syringe IV (17:48)
[2019-12-08] MEDS: 0.9% Normal Saline 1,000 ML 1000 ML IV (17:48)
[2019-12-08 18:05] LABS: Bacteria 0 SEEN /hpf (None Seen); Mucous, Urine 0 SEEN /hpf (<or=2+); Red Blood Cells-Urine 0 SEEN /hpf (0-5); White Blood Cells 0 SEEN /hpf (0-5)
[2019-12-08 18:07] LABS: Absolute Neutrophil Count 5.4 X10^3/uL (2.0-7.7); Basophil# 0.06 X10^3/uL; Basophil% 0.7 % (0-1); Eosinophil# 0.19 X10^3/uL; Eosinophils% 2.2 % (0-5); Hemoglobin 14.5 g/dL (12.0-15.0); Lymphocyte % 27.6 % (19-41); Mean Corpuscular Hgb 27.3 pg (27.0-32.0); Mean Corpuscular Volume 82.7 fL (81-99); Mean Platelet Vol. 9.9 fl (6.2-12.0); Monocyte# 0.65 X10^3/uL; Monocyte% 7.5 % (0-10); NRBC Flagged by Analyzer 0 % (0-5); Neutrophil # 5.36 X10^3/uL (2.7-7.7); Neutrophil % 61.8 % (47-70); Platelet Count 223 K/mm3 (150-450); RBC Distribution Width CV 12.3 % (11.6-14.6); RBC Distribution Width SD 37.1 fl (35.1-43.9); Red Blood Count 5.32 M/mm3 (4.2-5.4); White Blood Count 8.7 K/mm3 (4.4-11.0)
[2019-12-08 18:25] LABS: ALB/GLOB Ratio 1.1 RATIO (0.9-2.4); AST(SGOT) 11 U/L (15-37); Alanine Aminotransfer ALT/SGPT 24 U/L (13-56); Albumin, Serum 3.9 g/dL (3.2-5.0); Alkaline Phosphatase 60 U/L (45-117); Anion Gap 5 (5-15); BUN 14 mg/dL (7-18); BUN/Creat Ratio 20.5 RATIO (10-20); Calcium,Total 9.2 mg/dL (8.5-10.1); Chloride 107 mmol/L (98-107); Creatinine, Serum 0.68 mg/dL (0.55-1.02); EST Glomerular Filtration Rate 112 mL/min (>60); Est Glom Filt Rate - Afr Amer 135 mL/min (>60); Estimated Creatinine Clearance 133.32 ml/min; Globulin 3.7 g/dL (2.2-4.2); Glucose 87 mg/dL (74-106); Lipase 80 U/L (73-393); Potassium 3.8 mmol/L (3.5-5.1); Protein, Total 7.6 g/dL (6.4-8.2); Sodium Level 138 mmol/L (136-145)
[2019-12-08 18:33] LABS: Color, Urine Yellow (Yellow); Glucose, Dipstick Normal (Normal); Ketone-Dipstick Negative (Negative); Leukocyte Esterase-Dipstick Negative /ul (Negative); Nitrite-Dipstick Negative (Negative); Occult Blood-Urine Negative /ul (Negative); Protein-Dipstick Negative (Negative); Specific Gravity, Urine 1.015 (1.002-1.030); Urine Bilirubin Dipstick Negative (Negative); Urine Clarity Sl. Cloudy (Clear); Urine Urobilinogen Normal (Normal)
[2019-12-08 18:35] LABS: Internal QC Validated? YES +Cl - CLEAR BKGD
[2019-12-08 18:36] LABS: Pregnancy, Urine Negative Negative
[2019-12-08 18:42] LABS: Squamous Epithelial Cells - UA 0-5 SEEN /hpf (5-10)
--- NOTE | 2019-12-08 19:15 | US_ITS ---
STUDY: ULTRASOUND OF THE FEMALE PELVIS - COMPLETE REASON FOR EXAM: Female, [address] RLQ PAIN -DERMOIDS REMOVED BILAT IN NOV LMP: TECHNIQUE: Transvaginal TECHNICAL QUALITY: Adequate. COMPARISON: None. FINDINGS: The uterus is anteverted and is in a midline position. The uterus measures 8.8 x 6.4 x 4.8 cm. Normal uterine cervix. The endometrium measures 7 mm in thickness, and is . There is no demonstrated endometrial mass. There is no demonstrated myometrial mass. I.U.D. - The patient does not have an I.U.D. The ovaries bilaterally are noted posterior to the uterus.. The right ovary measures 5.8 x 6.1 x 4.2 cm and demonstrates multiple cysts the largest measuring 3.6 x 4.2 x 3.5 cm in association with a hyperechoic nodule measuring 1.4 x 1.7 cm which may be consistent with fat in a dermoid. Left ovary is also enlarged measuring 6.3 x 5.9 x 3.2 cm demonstrating multiple cysts the largest measuring 3.9 x 4.7 x 3.6 cm also containing a hyperechoic nodule measuring 1.8 x 2.5 x 1.4 cm also may be consistent with fat from a dermoid There is no fluid in the cul-de-sac. US/Transvaginal Non- IMPRESSION: Bilateral enlarged multicystic ovaries with findings suggestive of possible bilateral dermoids.. Clinical correlation is recommended. MRI would be useful for further evaluation if indicated Electronically Signed: Luisito Roque MD at 20:35 EST , Service support ,
[2019-12-08 19:16] VITALS: BP 131/55; PULSE 68; RESP 16; O2SAT 97
[2019-12-08 21:37] VITALS: BP 118/66; PULSE 75; RESP 14; O2SAT 98
== END 2019-12-08 21:43 | disposition home or self-care (01) ==
PROVIDERS: Emergency Provider Emergency Medicine; PCP Family Medicine
DX: R10.31 Right lower quadrant pain (principal); D27.1 Benign neoplasm of left ovary; D27.0 Benign neoplasm of right ovary; F17.200 Nicotine dependence, unspecified, uncomplicated
CPT/HCPCS: 74177; 76830; 80053; 81001; 81025; 83690; 85025; 93976; 96361; 96374; 96375; 99283; J7030; Q9967; J2405

== ENCOUNTER → 2019-12-14 | Outpatient (CLI) | payer OTHER, SELFPAY ==
[2019-12-08 16:59] VITALS: BMI 40.0
--- NOTE | 2019-12-14 16:45 | MRI_ITS ---
STUDY: MR PELVIS WITH T WITHOUT CONTRAST REASON FOR EXAM: Female, 24 years old. Hx of bilateral dermoid cysts of ovaries. Removed bilaterally x 2 (2018 and amp; 2013) TECHNIQUE: Standardized fat and water weighted pulse sequences were obtained in all 3 orthogonal planes, pre-and post contrast administration. Pt received 24ml DOtarem via IV was administered for the contrast portion of the examination. COMPARISON: Pelvic ultrasound 12/08/2019 FINDINGS: Normal urinary bladder. Normal visualized small intestine. Normal visualized colon. The ovaries are enlarged and contain innumerable cysts of fluid intensity suggestive of polycystic ovaries. The largest cyst in the right ovary measures 2.2 cm in diameter. There are 2 adjacent cysts within the left ovary measuring 4.4 and 4.2 cm each. No solid nodularity of these cystic lesions. There are also multiple masses of fat intensity within both ovaries consistent with ovarian dermoids. 2 of these lesions are seen in the right ovary measuring 1.5 and 2.0 cm in diameter. Another is seen in the left ovary measuring 2.0 cm in diameter. There is normal enhancement of the parenchyma of the ovaries without evidence of ovarian torsion. The uterus has a normal appearance. There is minimal fluid within the cul-de-sac consistent with a normal physiologic pelvic fluid. Normal visualized pelvic arteries. Normal osseous structures. Normal abdominal wall. MRI/Pelvis W/WO Contrast IMPRESSION: Suspect polycystic ovaries as well as small ovarian dermoids bilaterally. Electronically Signed: José Coronado MD at 15:02 EST Tel , Service support ,
== END | disposition home or self-care (01) ==
LOC: MRI 16:12
PROVIDERS: PCP Family Medicine; Referring Provider Obstetrics & Gynecology; Visit Provider Obstetrics & Gynecology
DX: N83.292 Other ovarian cyst, left side (principal); N83.291 Other ovarian cyst, right side
CPT/HCPCS: 72197; A9575

== ENCOUNTER → 2020-02-15 | Outpatient (CLI) | payer OTHER, SELFPAY ==
[2020-02-15 16:02] LABS: hCG Titer Quant., Serum 363 mIU/mL (1-3)
[2020-02-15 16:07] LABS: Progesterone Level 9.06 ng/mL (See Comment)
== END | disposition home or self-care (01) ==
LOC: LAB 14:47
PROVIDERS: PCP Family Medicine; Referring Provider Obstetrics & Gynecology; Visit Provider Obstetrics & Gynecology
DX: O20.0 Threatened abortion (principal)
CPT/HCPCS: 36415; 84144; 84702

== ENCOUNTER → 2020-02-17 09:14 | Outpatient (CLI) | payer OTHER, SELFPAY ==
[2020-02-17 10:19] LABS: hCG Titer Quant., Serum 888 mIU/mL (1-3)
== END ==
PROVIDERS: PCP Family Medicine; Referring Provider Obstetrics & Gynecology; Visit Provider Obstetrics & Gynecology
DX: O20.0 Threatened abortion (principal); Z3A.00 Weeks of gestation of pregnancy not specified
CPT/HCPCS: 36415; 84702

== ENCOUNTER → 2020-03-15 | Outpatient (CLI) | payer OTHER, SELFPAY ==
[2020-03-15 18:14] LABS: Absolute Lymphocyte Count 2.06 X10^3/uL (0.83-4.51); Absolute Neutrophil Count 7.6 X10^3/uL (2.0-7.7); Basophil# 0.05 X10^3/uL; Basophil% 0.5 % (0-1); Eosinophil# 0.09 X10^3/uL; Eosinophils% 0.9 % (0-5); Hematocrit 38.7 % (37-47); Hemoglobin 13.1 g/dL (12.0-15.0); Lymphocyte # 2.06 X10^3/ul (4.0); Lymphocyte % 19.7 % (19-41); Mean Corp Hgb Conc 33.9 g/dL (32-36); Mean Corpuscular Hgb 28.2 pg (27.0-32.0); Mean Corpuscular Volume 83.2 fL (81-99); Mean Platelet Vol. 9.8 fl (6.2-12.0); Monocyte# 0.63 X10^3/uL; NRBC Flagged by Analyzer 0 % (0-5); Neutrophil # 7.57 X10^3/uL (2.7-7.7); Neutrophil % 72.5 % (47-70); Platelet Count 217 K/mm3 (150-450); RBC Distribution Width CV 12.2 % (11.6-14.6); Red Blood Count 4.65 M/mm3 (4.2-5.4); White Blood Count 10.4 K/mm3 (4.4-11.0)
[2020-03-15 18:34] LABS: Color, Urine Yellow (Yellow); Glucose, Dipstick Normal (Normal); Ketone-Dipstick Negative (Negative); Leukocyte Esterase-Dipstick Negative /ul (Negative); Nitrite-Dipstick Negative (Negative); Occult Blood-Urine Negative /ul (Negative); Protein-Dipstick Negative (Negative); Urine Bilirubin Dipstick Negative (Negative); Urine Clarity Sl. Cloudy (Clear); Urine Urobilinogen Normal (Normal); Urine pH 6.5 (5.0 - 8.0)
[2020-03-15 18:36] LABS: Amphetamine Urine VISTA NEGATIVE (<1000 ng/mL); Barbiturate Urine VISTA NEGATIVE (< 200 ng/mL); Benzodiazepine Urine VISTA NEGATIVE (< 200 ng/mL); Cocaine Urine VISTA NEGATIVE (< 300 ng/mL); Ecstacy Urine VISTA NEGATIVE (< 500 ng/mL); Methadone Urine VISTA NEGATIVE (< 300 ng/mL); PCP Urine VISTA NEGATIVE (< 25 ng/mL); THC Urine VISTA NEGATIVE (< 50 ng/mL); Vista UDS pH Range 6
[2020-03-15 18:43] LABS: Thyroid Stim Hormone (TSH) 1.79 uIU/mL (0.358-3.74)
[2020-03-15 18:55] LABS: Hemoglobin A1c 5.5 % (4.2-6.3)
[2020-03-16 08:08] LABS: Prenatal RPR NONREACTIVE (NONREACTIVE)
[2020-03-16 08:16] LABS: HIV - WCH Non-Reactive (Nonreactive); Hepatitis B Surface Antigen Non-Reactive (Nonreactive); Hepatitis C Antibody Non-Reactive (Nonreactive); Rubella IgG 205.2 IU/mL; Vitamin D,25 Hydroxy 20.5 ng/mL
== END | disposition home or self-care (01) ==
PROVIDERS: Referring Provider Obstetrics & Gynecology; Visit Provider Obstetrics & Gynecology
DX: Z34.81 Encounter for supervision of other normal pregnancy, first trimester (principal); Z34.80 Encounter for supervision of other normal pregnancy, unspecified trimester
CPT/HCPCS: 80307; 81002; 82306; 83036; 84443; 85025; 86703; 86762; 86803; 87340

== ENCOUNTER → 2020-05-10 | Outpatient (CLI) | payer OTHER, SELFPAY ==
[2020-05-10 11:36] LABS: Glucose Challenge Gest 1H 50g 91 mg/dL (70-140)
== END | disposition home or self-care (01) ==
LOC: WOBLAB 10:22
PROVIDERS: Visit Provider Obstetrics & Gynecology
DX: Z34.82 Encounter for supervision of other normal pregnancy, second trimester (principal)
CPT/HCPCS: 36415; 82950

== ENCOUNTER 2020-07-29 08:55 | Outpatient (CLI) | payer OTHER, SELFPAY ==
[2020-07-29 09:09] VITALS: BMI 41.0
--- NOTE | 2020-07-29 09:10 | PN_ITS ---
Progress Note SUBJECTIVE: 25 yo at 28/2w, KATHY 10/19/20 by 6w US, presenting to triage for decreased movement and cramping. Did not feel him moving overnight, usually wakes up to use restroom and did not last night so did not notice movement overnight. Usually active then. Has felt 1 kick since she has been here. Reports some low back cramping this morning when feeding her horses. Intermittent and worse with movement. complicated by: hx of prior dermoid cysts removed in 2019. Hx: 2 SAB 1 EAB Medical Hx: Obesity Surgical Hx: Hx of laparoscopic dermoid ovarian cystectomy D&C Medications: PNV Family Hx: Noncontributory Allergies: NSAIDs OBJECTIVE: Vitals BP 113/57 HR 84 PHYSICAL EXAM: GEN: NAD CARDIORESP: no increased effort ABDOMEN: soft, NT, gravid EXT: no edema CE deferred FHR: 140/mod logan/+accel/no decel [place]: quiet BSUS completed: Cephalic position, subjectively normal fluid. Gross body moveme nts noted with body rolls and leg flexion and extension. A/P: 25 yo at 28/2w, KATHY 10/19/20 by 6w US, presenting to triage for decreased movement and cramping. Now feeling movement. Reassuring heart tracing and bedside ultrasound. Kick counts reviewed. Low back cramping likely musculoskeletal pain of . No contractions on toco. Encouraged rest when needed, hydration, belly band, tylenol or warm bath. Labor precautions given. Patient reassured. All questions answered. Keep appointment this week as scheduled.
[2020-07-29 09:27] VITALS: BP 113/57; PULSE 84
[2020-07-29 09:28] VITALS: BP 113/57; PULSE 81; TEMP 36.7; O2SAT 97
== END 2020-07-29 10:15 | disposition home or self-care (01) ==
LOC: WPOUT 09:00 → WP 09:00
PROVIDERS: Referring Provider Student in an Organized Health Care Education/Training Program; Visit Provider Student in an Organized Health Care Education/Training Program
DX: O36.8130 Decreased fetal movements, third trimester, not applicable or unspecified (principal); Z3A.28 28 weeks gestation of pregnancy
CPT/HCPCS: 59025; 59050; 99218; G0378

== ENCOUNTER → 2020-08-04 | Outpatient (CLI) | payer OTHER, SELFPAY ==
[2020-07-29 09:09] VITALS: BMI 41.0
[2020-08-04 16:10] LABS: Hematocrit 38.7 % (37-47); Mean Corp Hgb Conc 33.6 g/dL (32-36); Mean Corpuscular Hgb 29.1 pg (27.0-32.0); Mean Corpuscular Volume 86.8 fL (81-99); Mean Platelet Vol. 10.1 fl (6.2-12.0); Platelet Count 214 K/mm3 (150-450); RBC Distribution Width CV 12.5 % (11.6-14.6); RBC Distribution Width SD 38.9 fl (35.1-43.9); Red Blood Count 4.46 M/mm3 (4.2-5.4); White Blood Count 14.5 K/mm3 (4.4-11.0)
[2020-08-04 16:31] LABS: Glucose Challenge Gest 1H 50g 106 mg/dL (70-140)
== END | disposition home or self-care (01) ==
LOC: WOBLAB 15:14
PROVIDERS: Visit Provider Obstetrics & Gynecology
DX: Z34.83 Encounter for supervision of other normal pregnancy, third trimester (principal)
CPT/HCPCS: 36415; 82306; 82950; 85027

== ENCOUNTER → 2020-09-29 10:29 | Outpatient (CLI) | payer OTHER, SELFPAY | PROVIDERS: Visit Provider Obstetrics & Gynecology | DX: Z36.85 Encounter for antenatal screening for Streptococcus B (principal) | CPT/HCPCS: 87081 ==

== ENCOUNTER 2020-10-16 01:43 | Inpatient (IN) | payer OTHER, SELFPAY ==
[2020-10-16] VITALS (79 sets, daily range): BP systolic 110–155; BP diastolic 55–93; PULSE 48–81; TEMP 35.8–37.6; O2SAT 91–100; BMI 43.4
[2020-10-16] MEDS: Lactated Ringers 1,000 ML 50 ML IV (02:04)
[2020-10-16 02:20] LABS: Absolute Lymphocyte Count 2.53 X10^3/uL (0.83-4.51); Absolute Neutrophil Count 9.6 X10^3/uL (2.0-7.7); Basophil# 0.05 X10^3/uL; Basophil% 0.4 % (0-1); Eosinophil# 0.08 X10^3/uL; Eosinophils% 0.6 % (0-5); Hematocrit 41.6 % (37-47); Lymphocyte # 2.53 X10^3/ul (4.0); Mean Corp Hgb Conc 33.7 g/dL (32-36); Mean Corpuscular Hgb 29.5 pg (27.0-32.0); Mean Corpuscular Volume 87.6 fL (81-99); Mean Platelet Vol. 10.2 fl (6.2-12.0); Monocyte# 1.01 X10^3/uL; Monocyte% 7.6 % (0-10); NRBC Flagged by Analyzer 0 % (0-5); Neutrophil % 71.8 % (47-70); Platelet Count 205 K/mm3 (150-450); RBC Distribution Width CV 12.4 % (11.6-14.6); RBC Distribution Width SD 39.5 fl (35.1-43.9); Red Blood Count 4.75 M/mm3 (4.2-5.4); White Blood Count 13.4 K/mm3 (4.4-11.0)
[2020-10-16] MEDS: Oxytocin 30 units/NS 500 ml 30 UNITS/500 ML IV.SOLN IV (05:10)
[2020-10-16] MEDS: Acetaminophen 500 MG Tablet PO ×2 (05:23→13:38)
--- NOTE | 2020-10-16 08:32 | HP.PCM_ITS ---
History and Physical Date of Admission: 10/16/20 Chief complaint: Leakage of fluid History of present illness: 5-year-old G4, P0 at 39 weeks and 4 days with KATHY 10/19/20 x 6-week ultrasound arrives with leakage of fluid. Denies headache, visual changes, chest pain, shortness of breath, right upper quadrant pain. Denies vaginal bleeding. [place] good movement Obstetric history G1: 15-week EAB 08/17/2014 G2: 9-week SAB 06/25/2018 G3 9-week SAB 07/07/2019 G4: Current Past medical history: Obese Bilateral dermoids Depression Past surgical history: EAB Cystectomy 2013, 2018 Medications vitamin, aspirin Allergies: Mefenamic acid Social history: Former smoker, denies alcohol or drug use Review of systems: Besides the above pertinent positives a full review of systems was performed found to be negative Physical exam: Vital Signs Temp Pulse BP Pulse Ox 10/16/20 07:28 97.3 F L 10/16/20 07:25 97.3 F L 68 117/69 98 10/16/20 06:32 70 117/59 L 10/16/20 06:30 98.4 F 71 97 10/16/20 05:40 97.5 F L 10/16/20 05:39 68 119/63 10/16/20 04:23 97.2 F L 10/16/20 04:07 78 136/79 H 10/16/20 02:46 97.5 F L 10/16/20 01:23 77 132/86 H 10/16/20 01:22 98 10/16/20 01:13 96.4 F L General: Normal-appearing no acute distress HEENT: Normocephalic atraumatic no cervical lymphadenopathy Cardiac: Regular rate and rhythm no murmurs rubs or gallops Respiratory: Clear to auscultation bilaterally no wheezes rales or crackles Pelvic: Grossly ruptured CE: 1cm FHT: 120/mod bibiana/+accel/-decel [place]: q2-4 min Abdomen: Soft, nontender, gravid. Positive bowel sounds Extremities: No peripheral edema normal peripheral pulses Psych: Normal affect normal demeanor nonpressured speech Mom's Microbiology 10/16/20 02:10 Mucosa - Nose SARS-CoV-2 Antigen (Rapid) - Final Mom's Labs & Results 10/16/20 10/16/20 02:04 02:04 WBC 13.4 H RBC 4.75 Hgb 14.0 Hct 41.6 MCV 87.6 MCH 29.5 MCHC 33.7 RDW Std Deviation 39.5 RDW Coeff of [place] 12.4 Plt Count 205 MPV 10.2 Immature Gran % (Auto) 0.600 Neut % (Auto) 71.8 H Lymph % (Auto) 19.0 [place] % (Auto) 7.6 Eos % (Auto) 0.6 Baso % (Auto) 0.4 Absolute Neuts (auto) 9.6 H Absolute Lymphs (auto) 2.53 Nucleated RBC % 0 Blood Type A POSITIVE Antibody Screen NEGATIVE Labs Blood Type: A RH: POSITIVE RPR/VDRL/Syphilis Nonreactive Rubella status Immune HbSAg Negative Date Done: 03/15/20 Chlamydia Negative Gonorrhea Negative HIV/AIDS Non-Reactive Group B Strep: Negative Assessment and Plan: 25 yo at 39wk/4d arrives with SROM. -Admit to labor and delivery -GBS neg -CEFM -To start pitocin with no change -Routine orders -Anesthesia to see
[2020-10-16] MEDS: Lactated Ringers 1,000 ML 200 ML IV ×3 (09:07→18:51)
[2020-10-16] MEDS: Ondansetron 4 MG/2 ML Vial IV (13:37)
[2020-10-16] MEDS: Lactated Ringers 500 ML 999 ML IV ×2 (17:45→20:26)
--- NOTE | 2020-10-16 18:30 | PCM.PN.BLA ---
Progress Note CE 260/-3. AROM forebag. FSE and IUPC placed. FHR: 135/mod logan/+accel/n o decel, [place] q2-4. Continue titrating pitocin. FSE not tracing well, will replace when cervix more dilated as cervix was very posterior. STROKE Vital Signs/Narrative: Vital Signs Temp Pulse BP Pulse Ox 10/16/20 18:29 71 98 10/16/20 18:23 65 138/93 H 10/16/20 17:42 55 L 128/77 H 10/16/20 17:41 97.7 F L 98 10/16/20 16:22 55 L 129/91 H 98
[2020-10-16] MEDS: fentaNYL-bupivacaine (epidural) 100 ML BAG EPIDURAL (22:16)
[2020-10-16] MEDS: 0.9% Saline Lock 10 ML Syringe IV (22:38)
[2020-10-17] VITALS (29 sets, daily range): BP systolic 103–141; BP diastolic 51–82; PULSE 56–84; RESP 16–18; TEMP 36.2–37.4; O2SAT 96–100
[2020-10-17] MEDS: Lactated Ringers 1,000 ML 200 ML IV (00:18)
[2020-10-17] MEDS: Oxytocin 30 units/NS 500 ml 30 UNITS/500 ML IV.SOLN 334 UNITS IV (02:03)
--- NOTE | 2020-10-17 02:11 | PCM.OPRPT ---
Vaginal Delivery Maternal Presentation: Spontaneous Rupture of Membranes Method of Induction: Pitocin Amniotic Membrane Rupture Type: Spontaneous at home Amniotic Fluid Description: Clear Final KATHY: 10/19/20 Final KATHY Source: US <20 weeks Gestational age: 39 Weeks and 5 Days Date of Procedure: 10/17/20 Pre-Operative Diagnosis: Spontaneous rupture of membranes, Anthony intrauterine 39/5w Post-Operative Diagnosis: Spontaneous rupture of membranes, Anthony intrauterine 39/5w Surgery/ Procedure Performed: Spontaneous Vaginal Delivery Type of Anesthesia: Epidural Description of Procedure: Spontaneous vaginal delivery of viable infant male. Nuchal cord x1, loose, reduced. Baby to mom. Cord clamped and cut. Second degree midline perineal laceration repaired in usual fashion, hemostatic. Spontaneous delivery of placenta. EBL 250cc. Cord Vessel Description: 3 Vessels A gender: Male (1 minute): 8 (5 minute): 9
[2020-10-17] MEDS: Acetaminophen 500 MG Tablet 1000 MG PO ×3 (03:24→20:01)
[2020-10-17] MEDS: 0.9% Saline Lock 10 ML Syringe IV (04:45)
[2020-10-18] MEDS: Acetaminophen 500 MG Tablet 1000 MG PO ×2 (04:19→14:02)
[2020-10-18 04:32] VITALS: BP 150/75; PULSE 63; RESP 16; TEMP 36.3
[2020-10-18 07:34] VITALS: BP 125/63; PULSE 54; RESP 16; TEMP 36.2; O2SAT 96
--- NOTE | 2020-10-18 08:52 | PN.OBGYN_ITS ---
Subjective: No issues overnight. She is crampy, otherwise doing ok. Denies heavy lochia. OOB and no voiding difficulties. Objective: AVSS - Physical Exam Vitals/I&O's: Vital Signs Temp Pulse Resp BP Pulse Ox 97.2 F L 54 L 16 125/63 H 96 10/18/20 07:34 10/18/20 07:34 10/18/20 07:34 10/18/20 07:34 10/18/20 07:34 Oxygen Delivery Method Room Air Weight: 133.5 kg Body Mass Index (BMI) 43.4 Intake and Output for Last 24 Hours 10/16/20 10/17/20 10/18/20 23:59 23:59 23:59 Intake Total 5321.83 / 5321.83 1482.27 / 1482.27 Output Total 2400 / 2400 2650 / 2650 Balance 2921.83 / 2921.83 -1167.73 / -1167.73 General: Alert, Oriented x3, Cooperative, No apparent distress HEENT: Atraumatic, Normocephalic Lungs: Clear to auscultation, Normal air movement Cardiovascular: Regular rate, Regular Rhythm, Normal S1, Normal S2 Abdomen: Soft, Non Tender, Non-Distended, - - Fundus firm and nontender, moderate lochia Extremities: No Calf Tenderness, - - trace b/l LE edema Neurological: Neuro grossly intact Psych/Mental Status: Normal Affect, Appropriate, Alert and oriented to time, p lace, person, mood and affect Microbiology Past 72 Hours 10/16/20 02:10 Mucosa - Nose SARS-CoV-2 Antigen (Rapid) - Final Current Medications Acetaminophen (Acetaminophen 500 Mg Tablet) 1,000 mg PO Q8H PRN PRN PRN Reason: Pain Score 1-3 Last Admin: 10/18/20 04:19 Dose: 1,000 mg Documented by: Bisacodyl (Bisacodyl 10 Mg Suppository) 10 mg RECTAL UD PRN PRN Reason: If no BM Dibucaine (Dibucaine 30 Gm Tube) 1 applic TOPICAL TID PRN PRN; Protocol PRN Reason: Discomfort Hydrocortisone (Hydrocortisone 2.5% Crm) 1 applic TOPICAL TID PRN PRN; Protocol PRN Reason: Discomfort Ibuprofen (Ibuprofen 600 Mg Tablet) 600 mg PO Q6H PRN PRN PRN Reason: Pain Score 1-3 Ondansetron HCl (Ondansetron 4 Mg/2 Ml Vial) 4 mg IV Q4H PRN PRN PRN Reason: Nausea Senna/Docusate Sodium (Senna/Docusate Sodium 1 Tablet) 1 - 2 tablet PO DAILY PRN PRN PRN Reason: Constipation Simethicone (Simethicone 80 Mg Tablet) 80 mg PO PCHS PRN PRN Reason: Indigestion/Stomach pain Sodium Chloride (0.9% Saline Lock 10 Ml Syringe) 5 - 15 ml IV UD PRN PRN Reason: SALINE FLUSH Last Admin: 10/17/20 04:45 Dose: 10 ml Documented by: Zolpidem Tartrate (Zolpidem Tartrate 5 Mg Tablet) 5 mg PO QHS PRN PRN PRN Reason: Insomnia Medical Necessity - Tobacco Use Smoking Status: Former smoker Assessment/Plan All Active Problems Dermoid cyst of both ovaries (Acute) Postprocedural pelvic peritoneal adhesions (Acute) (spontaneous vaginal delivery) (Acute) 25yo PPD#1 s/p doing well. -Rh positive -Routine care -
[2020-10-18 13:39] VITALS: BP 125/70; PULSE 60; RESP 16; TEMP 36.5; O2SAT 99
--- NOTE | 2020-10-18 14:17 | DCINST_ITS ---
Discharge Diet: No Restrictions Discharge Activity: Return to Normal Activity, May Shower, May Take a Tub Bath May resume sexual activity in: 6 weeks Lifting Restrictions: 20 lb Additional Instructions: If you experience any of the following, contact your healthcare provider. * Bleeding that soaks a pad every hour for 2 hours * Fever 100.4 or higher * Unrelieved incision or abdominal pain * Swelling, redness, discharge or bleeding from your incision or episiotomy site * Your incision begins to separate * Problems urinating (including inability to urinate or burning while urinating). * Visual changes * Severe headache * Flu-like symptoms * Pain or redness in one of both of your breasts * Pain, warmth, tenderness or swelling in your legs, especially the calf area * Frequent nausea and vomiting * Symptoms of depression or anxiety If you experience any of the following, call 911 or go to the nearest Emergency Room. * Chest pain * Problems breathing * Seizure activity * Partial or complete paralysis of a body part, slurred speech, weakness or drooping of the face, or a sudden inability to walk or hold your balance Allergies/Adverse Reactions: Allergies NSAIDS (Non-Steroidal Anti-Inflamma Adverse Reaction (Mild, Verified 10/16/20 01:31) Nausea Medications to take at Discharge Aspirin [Aspirin, Baby] 81 mg PO DAILY 07/29/20 Dha 1 tab PO DAILY 07/29/20 Vitamin D 25 mcg PO DAILY 07/29/20 Please Follow Up With: Nati Primary Care Physician: Care Physician,No Primary [Primary Care Provider] - Test Results: Test results from this visit will be discussed in further detail at your follow- up appointment, if applicable.
--- NOTE | 2020-10-18 14:17 | PCM.DCVAG ---
Discharge Diet: No Restrictions Discharge Activity: Return to Normal Activity, May Shower, May Take a Tub Bath May resume sexual activity in: 6 weeks Lifting Restrictions: 20 lb Additional Instructions: If you experience any of the following, contact your healthcare provider. Bleeding that soaks a pad every hour for 2 hours Fever 100.4 or higher Unrelieved incision or abdominal pain Swelling, redness, discharge or bleeding from your incision or episiotomy site Your incision begins to separate Problems urinating (including inability to urinate or burning while urinating). Visual changes Severe headache Flu-like symptoms Pain or redness in one of both of your breasts Pain, warmth, tenderness or swelling in your legs, especially the calf area Frequent nausea and vomiting Symptoms of depression or anxiety If you experience any of the following, call 911 or go to the nearest Emergency Room. Chest pain Problems breathing Seizure activity Partial or complete paralysis of a body part, slurred speech, weakness or drooping of the face, or a sudden inability to walk or hold your balance Allergies/Adverse Reactions: Allergies NSAIDS (Non-Steroidal Anti-Inflamma Adverse Reaction (Mild, Verified 10/16/20 01:31) Nausea Medications to take at Discharge Aspirin [Aspirin, Baby] 81 mg PO DAILY 07/29/20 Dha 1 tab PO DAILY 07/29/20 Vitamin D 25 mcg PO DAILY 07/29/20 Please Follow Up With: Nati Primary Care Physician: Care Physician,No Primary [Primary Care Provider] - Test Results: Test results from this visit will be discussed in further detail at your follow-up appointment, if applicable.
--- NOTE | 2020-10-18 14:23 | DCINST_ITS ---
Discharge Diet: No Restrictions Discharge Activity: Return to Normal Activity, May Shower, May Take a Tub Bath May resume sexual activity in: 6 weeks Lifting Restrictions: 20 lb Additional Instructions: If you experience any of the following, contact your healthcare provider. * Bleeding that soaks a pad every hour for 2 hours * Fever 100.4 or higher * Unrelieved incision or abdominal pain * Swelling, redness, discharge or bleeding from your incision or episiotomy site * Your incision begins to separate * Problems urinating (including inability to urinate or burning while urinating). * Visual changes * Severe headache * Flu-like symptoms * Pain or redness in one of both of your breasts * Pain, warmth, tenderness or swelling in your legs, especially the calf area * Frequent nausea and vomiting * Symptoms of depression or anxiety If you experience any of the following, call 911 or go to the nearest Emergency Room. * Chest pain * Problems breathing * Seizure activity * Partial or complete paralysis of a body part, slurred speech, weakness or drooping of the face, or a sudden inability to walk or hold your balance Allergies/Adverse Reactions: Allergies NSAIDS (Non-Steroidal Anti-Inflamma Adverse Reaction (Mild, Verified 10/16/20 01:31) Nausea Medications to take at Discharge Dha 1 tab PO DAILY 07/29/20 Vitamin D 25 mcg PO DAILY 07/29/20 Please Follow Up With: Yoselyn Carbajal MD When: 6 weeks Primary Care Physician: Care Physician,No Primary [Primary Care Provider] - Test Results: Test results from this visit will be discussed in further detail at your follow- up appointment, if applicable.
--- NOTE | 2020-10-18 14:23 | PCM.DCVAG ---
Discharge Diet: No Restrictions Discharge Activity: Return to Normal Activity, May Shower, May Take a Tub Bath May resume sexual activity in: 6 weeks Lifting Restrictions: 20 lb Additional Instructions: If you experience any of the following, contact your healthcare provider. Bleeding that soaks a pad every hour for 2 hours Fever 100.4 or higher Unrelieved incision or abdominal pain Swelling, redness, discharge or bleeding from your incision or episiotomy site Your incision begins to separate Problems urinating (including inability to urinate or burning while urinating). Visual changes Severe headache Flu-like symptoms Pain or redness in one of both of your breasts Pain, warmth, tenderness or swelling in your legs, especially the calf area Frequent nausea and vomiting Symptoms of depression or anxiety If you experience any of the following, call 911 or go to the nearest Emergency Room. Chest pain Problems breathing Seizure activity Partial or complete paralysis of a body part, slurred speech, weakness or drooping of the face, or a sudden inability to walk or hold your balance Allergies/Adverse Reactions: Allergies NSAIDS (Non-Steroidal Anti-Inflamma Adverse Reaction (Mild, Verified 10/16/20 01:31) Nausea Medications to take at Discharge Dha 1 tab PO DAILY 07/29/20 Vitamin D 25 mcg PO DAILY 07/29/20 Please Follow Up With: Yoselyn Carbajal MD When: 6 weeks Primary Care Physician: Care Physician,No Primary [Primary Care Provider] - Test Results: Test results from this visit will be discussed in further detail at your follow-up appointment, if applicable.
--- NOTE | 2020-10-18 16:00 | CASEMGMT ---
Social Work Assessment Labor and Delivery Unit Patient Address: [address] [place] [id number] Phone number: [phone] Date of Referral: 10/18/2020 Time of Referral: 225 Referred By: Dr. Cachorro De Anda Date of Intervention: 10/19/2020 Time of Intervention: 1600 Reason for Referral: Maternal history of depression History obtained from: Medical records and mother of baby (MOB) Frieda Prado. Household composition: EARL has her own apartment and be father of baby (FOB) also lives in this apartment. Patient's parent/guardian status: EARL is a 25-year-old single female involved with the father of baby Semaj Murphy for the last 2 years. MOB denies any type of abuse in this relationship. [place] baby is the first child for both, and baby is to be named Abdiel Hsu. Medical History: EARL is 3, para 0 now 1 after delivering baby Abdiel. Medical record indicates 1 previous IAB and 1 previous SAB. care for this started at 12 weeks gestation. Baby Abdiel delivered at 7 pounds 14 ounces. Apgars 8 and 9 at 1 and 5 minutes of life. Educational Status: MOB graduated from high school. No issues with reading, writing, or learning comprehension. Financial Status: EARL was most recently working at [employer] in [place]. 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 EARL reports to be financially okay while on maternity leave. The FOB is currently working and bringing in an income. Infant Supplies: MOB reports to have needed baby supplies including a crib and a car seat. Adequate on the clothing, diapers, and wipes. Mom is breast-feeding. Childcare/Caregiver(s): EARL will be the primary caregiver of the baby. Will be hopes to go back to work with her father because this will be a situation where MOB can bring the baby alone. Transportation: No concerns. Programs/Agencies Involved: EARL has the application for Medicaid and plans to apply for this for both self and baby. EARL has WIC. Agrees to a help me grow referral. Behavioral Health Issues: Mental Health History: EARL has a history of depression with treatment with Prozac. EARL stayed on this medication until and then went off. MOB reports to feel her mood is stable and doing fine without the medicine. MOB reports she did have a history of suicidal thoughts after her miscarriage in 2018. No specific plans, intent, or action. Denies any thoughts of wanting to since that time. Substance Use History: EARL does have a history of using marijuana however this was prior to . Denies any use of any substances during this illicit or illegal. Family History: Not discussed. Drug Screens: Maternal drug screen negative on 03/25/2020 Family/Social Stressors: At the beginning of the there was some stress between the MOB and the FOB, but this has resolved. As a result however MOB has set herself up to be independent and be able to care for the baby should that MOB and FOB not work out. Support Systems: EARL reports her mother is a strong support system as well as her father and her granny. FOB is also supportive. Depression/Shaken Baby/Safe Sleeping written information given on all topics. Verbally reviewed mood and anxiety disorders, risk factors, and the importance of seeking help and support. ASSESSMENT: Met with EARL and her mother Carolina together and then along with the MOB. MOB reports to have all needed supplies to care for the baby, and to have an adequate support system. At discharge MOB will go to her parents home for a night or 2 for some additional help. MOB report ports that she feels her depression is okay right now, and reports to have able to talk to should concerns arise. MOB can also talk with her doctor about restarting medication. MOB reports to have a positive and loving connection with the baby. There have been no concerns voiced by nursing staff regarding parent-child interactions or bonding. EARL is agreeable to have a homemaker referral for some additional support. EARL denies any intent to pick marijuana back up in the future. MOB was pleasant, cooperative, good eye contact, appropriate mood and affect to content. MOB held baby during assessment and seem to be actively engaged with the baby, touching the baby and looking at the baby and smiling. PLAN: MOB and will discharge home. [facility] resource list provided as well as a packet on mood and anxiety disorders. Me grow referral to be made. No other services requested or indicated. -BENJAMIN Jeter, FUR TAILOR *Information documented in this assessment generated with [employer] System*
--- NOTE | 2020-10-20 16:08 | CASEMGMT ---
Social Work Labor and Delivery unit Help me grow referral submitted through the [facility] assisted care web-based referral system. [] No other services requested or indicated. -ZEHRA Jeter, PASTING MACHINE OPERATOR. *Information documented in this note generated via [email or web address] system*
== END 2020-10-18 17:05 | disposition home or self-care (01) | DRG 807 ==
LOC: OBT 01:45 → WP 01:45
PROVIDERS: Admitting Provider Obstetrics & Gynecology; Visit Provider Obstetrics & Gynecology
DX: O69.81X0 Labor and delivery complicated by cord around neck, without compression, not applicable or unspecified (principal); Z37.0 Single live birth; O99.214 Obesity complicating childbirth; O76 Abnormality in fetal heart rate and rhythm complicating labor and delivery; O70.1 Second degree perineal laceration during delivery; Z3A.39 39 weeks gestation of pregnancy
CPT/HCPCS: 59025; 59050; 85025; 86850; 86900; 86901; 87426; 99218; J7120; 90686; A4216; G0378; J2405; J3490

== ENCOUNTER 2023-05-19 11:39 | Emergency (ER) | payer MEDICAID, SELFPAY ==
[2023-05-19 11:40] VITALS: BP 137/86; PULSE 76; RESP 14; TEMP 36.4; O2SAT 97; BMI 38.0
--- NOTE | 2023-05-19 11:58 | EX.ED.DYSGE1 ---
HPI History of Present Illness Chief Complaint: Sore Throat Informant: patient Narrative Narrative: Patient has had sore throat with odynophagia and now worsening swelling bilaterally for the past 1.5-2 weeks. Started on the left, then bilateral, seems a little worse on the left with regards to pain and swelling subjectively by the patient. No known fevers. Has been very tired. No significant cough. States she was at urgent care initially and had a negative rapid strep and was placed on Augmentin for 10 days. She just finished that and things have been getting worse the whole time. PFSH PFS Medical History Dermoid cyst of both ovaries Postprocedural pelvic peritoneal adhesions Tonsillar abscess Home Medications Dha 1 tab PO DAILY 07/29/20 [History Last Taken 10/15/20] Vitamin D 25 mcg PO DAILY 07/29/20 [History Last Taken 10/15/20] MAGIC MOUTH WASH (BMX) 180 mL suspension 10 ml PO Q8H PRN pain, mild #180 mL 05/09/23 [Rx Last Taken Unknown] Allergy/AdvReac Type Severity Reaction Status Date / Time NSAIDS (Non-Steroidal AdvReac Mild Nausea Verified 05/19/23 11:40 Anti-Inflamma Family History (Updated 05/09/23 @ 13:16 by Jazmin Ivory) Other Hypertension Social History Smoking Status: Unknown if ever smoked ROS ROS ED Constitutional Constitutional ED: Denies chills or fever(s) ENT ENT ED: Reports sore throat and throat swelling; Denies nasal congestion or rhinorrhea Cardiovascular Cardiovascular: Denies chest pain or palpitations Respiratory/Chest Respiratory/Chest: Denies cough or dyspnea Gastrointestinal Gastrointestinal: Denies abdominal pain, diarrhea, nausea or vomiting Genitourinary Genitourinary ED: Denies dysuria or hematuria Musculoskeletal Musculoskeletal: Denies myalgias or neck pain Integumentary Denies abscess or rash Neurologic Neurologic: Denies headache(s), paresthesias or weakness Psychiatric Psychiatric: Denies depression or suicidal thoughts Endocrine Endocrinology: Denies polydipsia or polyuria EXAM Physical Exam Const Vital Signs: 05/19/23 11:40 Temperature 97.6 F L Temperature Source Temporal Pulse Rate 76 Respiratory Rate 14 Blood Pressure 137/86 H Blood Pressure Mean 103 Pulse Ox 97 Oxygen Delivery Method Room Air Positive well nourished and well developed General Appearance ED: well developed and NAD HEENT Reports moist mucous membranes HEENT Narrative: Bilateral tonsillar erythema, edema, and exudates. No significant/gross asymmetry. Very mild trismus but still able to see tonsils. Mild dysphonia, but no stridor. normocephalic and atraumatic Throat: posterior oropharynx abnormal Eyes PERRL and EOMs intact bilaterally Neck supple and no meningeal signs Neck Narrative: Tender left submandibular where tonsils/adenoids are, no other palpable lymphadenopathy including posterior aspect of the neck. Chest Wall inspection of chest normal and palpation of chest normal Resp normal respiratory effort and clear to auscultation bilaterally Cardio no murmurs Rate: regular rate Rhythm: regular rhythm Neuro oriented x3, CN's II-XII intact bilaterally and no sensory deficits noted Sensorium / Orientation: alert Motor Exam: strength 5/5 throughout Psych mental status grossly normal Skin no rashes or lesions noted, no wounds and skin turgor normal Lesions: no lesions Rashes: no rashes MDM MDM MDM Narrative Medical decision making narrative: Exudative tonsillitis that is no better after taking Augmentin for 10 days, along with symptoms of mononucleosis but no posterior lymphadenopathy. Work-up shows slightly elevated AST and ALT, lack of a leukocytosis but a predilection for lymphocytes, and a positive monoscreen. All of this is consistent with mononucleosis. Luckily she did not get the rash often seen when mononucleosis is treated with amoxicillin. She is already done with that medication now so no need to encourage discontinuation, she was given Decadron 10 mg here, and instructions continued for supportive care and hydration. Lab Data Attestation: I reviewed the patient's lab results. Labs: Laboratory Results - last 24 hr 05/19/23 12:13 WBC 5.9 RBC 4.85 Hgb 13.5 Hct 41.4 MCV 85.4 MCH 27.8 MCHC 32.6 RDW Std Deviation 37.6 RDW Coeff of [place] 12.1 Plt Count 190 MPV 9.7 Immature Gran % (Auto) 0.500 Neut % (Auto) 41.3 L Lymph % (Auto) 45.1 H [place] % (Auto) 9.5 Eos % (Auto) 2.2 Baso % (Auto) 1.4 H Absolute Neuts (auto) 2.4 Absolute Lymphs (auto) 2.65 Nucleated RBC % 0 Sodium 138 Potassium 4.0 Chloride 109 H Carbon Dioxide 26.0 Anion Gap 3 L BUN 12 Creatinine 0.65 Estim Creat Clear Calc 135.87 Est GFR (MDRD) Af Amer 139 Est GFR (MDRD) Non-Af 115 BUN/Creatinine Ratio 18.4 Glucose 89 Calcium 8.3 L Total Bilirubin 0.40 AST 199 H ALT 313 H Alkaline Phosphatase 117 Total Protein 6.8 Albumin 3.2 Globulin 3.6 Albumin/Globulin Ratio 0.9 Monoscreen POSITIVE H D Discharge Plan Triage Chief Complaint: Sore Throat ED Provider: Nehemias Awan Dx/Rx/DC Orders Clinical Impression: Infectious mononucleosis Instructions: ED Mononucleosis Prescriptions: No Action MAGIC MOUTH WASH (BMX) 180 mL suspension 10 ml PO Q8H PRN (Reason: pain, mild) Qty: 180 0RF Rx Instructions: diphenhydramine 12.5 mg/5 mL oral liquid 60 mL; aluminum-mag hydroxide-simethicone 400 mg-400 mg-40 mg/5 mL oral susp 60 mL; Lidocaine Viscous 2 % mucosal solution 60 mL; Per 180 mL Dha tablet 1 tab PO DAILY Vitamin D tablet 25 mcg PO DAILY Primary Care Provider: Care Physician,No Primary Referrals: Care Physician,No Primary [Primary Care Provider] - Doctor,Your [Non-Staff] - 1-2 Weeks Disposition Disposition: Home, Self Care
[2023-05-19 12:24] LABS: Absolute Lymphocyte Count 2.65 X10^3/uL (0.83-4.51); Absolute Neutrophil Count 2.4 X10^3/uL (2.0-7.7); Basophil# 0.08 X10^3/uL; Basophil% 1.4 % (0-1); Eosinophil# 0.13 X10^3/uL; Eosinophils% 2.2 % (0-5); Hematocrit 41.4 % (37-47); Hemoglobin 13.5 g/dL (12.0-15.0); Lymphocyte # 2.65 X10^3/ul (0.83-4.51); Lymphocyte % 45.1 % (19-41); Mean Corp Hgb Conc 32.6 g/dL (32-36); Mean Corpuscular Hgb 27.8 pg (27.0-32.0); Mean Corpuscular Volume 85.4 fL (81-99); Mean Platelet Vol. 9.7 fl (6.2-12.0); Monocyte# 0.56 X10^3/uL; Monocyte% 9.5 % (0-10); NRBC Flagged by Analyzer 0 % (0-5); Neutrophil # 2.43 X10^3/uL (2.7-7.7); Neutrophil % 41.3 % (47-70); POSITIVE MORPHOLOGY YES; Platelet Count 190 K/mm3 (150-450); RBC Distribution Width CV 12.1 % (11.6-14.6); RBC Distribution Width SD 37.6 fl (35.1-43.9); Red Blood Count 4.85 M/mm3 (4.2-5.4); White Blood Count 5.9 K/mm3 (4.4-11.0)
[2023-05-19 12:33] LABS: Differential Indicated SCAN CRITERIA MET
[2023-05-19] MEDS: dexAMETHasone 10 MG/ML Vial IV (12:37)
[2023-05-19 12:38] LABS: ALB/GLOB Ratio 0.9 RATIO (0.9-2.4); AST(SGOT) 199 U/L (15-37); Alanine Aminotransfer ALT/SGPT 313 U/L (13-56); Albumin, Serum 3.2 g/dL (3.2-5.0); Alkaline Phosphatase 117 U/L (45-117); Anion Gap 3 (5-15); BUN 12 mg/dL (7-18); BUN/Creat Ratio 18.4 RATIO (10-20); Calcium,Total 8.3 mg/dL (8.5-10.1); Chloride 109 mmol/L (98-107); Creatinine, Serum 0.65 mg/dL (0.55-1.02); EST Glomerular Filtration Rate 115 mL/min (>60); Est Glom Filt Rate - Afr Amer 139 mL/min (>60); Estimated Creatinine Clearance 135.87 ml/min; Globulin 3.6 g/dL (2.2-4.2); Glucose 89 mg/dL (74-106); Protein, Total 6.8 g/dL (6.4-8.2); Sodium Level 138 mmol/L (136-145)
[2023-05-19 12:53] LABS: Internal QC Validated? YES +Cl - CLEAR BKGD; Monotest POSITIVE (Negative)
[2023-05-19 12:58] LABS: Reactive Lymphocyte 1+
--- NOTE | 2023-05-19 13:07 | CM.ED ---
Social Work Note Referral Source: case find Referral Reason: no PCP SW met with patient and introduced herself and role as [facility] Front End Technician. Patient was seated on hospital bed and agreeable to speak with SW with her mother present. SW inquired about patient's insurance and current PCP. Patient verified insurance and reports her PCP is Dr. Lucas. Patient declined a list of local PCPs in network with patient's insurance and accepting new patients. Patient voiced no other needs at this time. SW remains available if needs arise. Felisa Marti RECEIVING INSPECTOR, MAGALIS
== END 2023-05-19 13:24 | disposition home or self-care (01) ==
PROVIDERS: Emergency Provider Emergency Medicine; Visit Provider Emergency Medicine
DX: B27.90 Infectious mononucleosis, unspecified without complication (principal)
CPT/HCPCS: 80053; 85025; 86308; 96374; 99282; A4216

== ENCOUNTER 2024-03-04 20:09 | Emergency (ER) | payer MEDICAID, SELFPAY ==
[2024-03-04 20:10] VITALS: BP 131/79; PULSE 86; RESP 18; TEMP 36.2; O2SAT 100
[2024-03-04 20:27] VITALS: BMI 41.0
--- NOTE | 2024-03-04 20:52 | EX.ED.DYSGE1 ---
HPI <RAMIREZ Caruso - Last Filed: 03/04/24 21:29> History of Present Illness Chief Complaint: Lower Extremity Injury Narrative Narrative: Patient is a 28-year-old female with no significant medical history presents to the emerged part with left foot pain. Patient states approximately 5:30 PM she was walking with her horse when the horse stepped on her left foot. Patient states she then iced it for 1 hour, she still feels that her toes are numb, she has worsening pain, edema, ecchymosis and is here for evaluation. She denies any history of surgery or injury to this foot. 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 Tonsillar abscess Home Medications Dha 1 tab PO DAILY 07/29/20 [History Last Taken 10/15/20] Vitamin D 25 mcg PO DAILY 07/29/20 [History Last Taken 10/15/20] MAGIC MOUTH WASH (BMX) 180 mL suspension 10 ml PO Q8H PRN pain, mild #180 mL 05/09/23 [Rx Last Taken Unknown] Allergy/AdvReac Type Severity Reaction Status Date / Time NSAIDS (Non-Steroidal AdvReac Mild Nausea Verified 03/04/24 20:10 Anti-Inflamma Family History (Updated 05/09/23 @ 13:16 by Jazmin Ivory) Other Hypertension Social History Smoking Status: Unknown if ever smoked ROS <RAMIREZ Caruso - Last Filed: 03/04/24 21:29> ROS ED ROS Narrative Constitutional: Negative for fever, chills, weight loss, weakness Eyes: Negative for vision loss, vision change, double vision ENT: Negative for any sore throat, ear pain, congestion Cardiovascular: Negative for any chest pain, tightness, palpitations Respiratory: Negative for any cough, sputum production, hemoptysis, dyspnea, dyspnea on exertion, orthopnea Gastrointestinal: Negative for any abdominal pain, nausea, vomiting, diarrhea, constipation, blood in stool, blood in vomit : Negative for any urinary frequency, dysuria, retention, blood in urine Muscle skeletal: Negative for any neck pain, back pain. Positive right foot pain Neurological: Negative for any headache, syncope, dizziness Skin: Negative for any rashes, itching, abrasions, lacerations Psychiatric: Negative for any depression, anxiety, stress, suicidal ideation, homicidal ideation Hematologic: Negative for any excessive bruising, easy bleeding EXAM <RAMIREZ Caruso - Last Filed: 03/04/24 21:29> Physical Exam Narrative Exam Narrative: Vital signs reviewed. HEET: Head normocephalic atraumatic, TMs clear bilaterally. Posterior pharynx is clear, moist mucous membranes. Nares clear bilaterally. Neck: Supple with no lymphadenopathy or tenderness. No signs of meningismus. Cardiac: Regular rate and rhythm no murmurs gallops or rubs, equal peripheral pulses bilaterally. Respiratory: Lungs clear to auscultation bilaterally. No chest tenderness. Abdomen: Soft, nontender, nondistended. No abdominal bruit or pulsatile masses. No hepatosplenomegaly Extremities: No peripheral edema, no signs of gross trauma or deformity. Active full range of motion of all extremities. Patient does have some ecchymosis, edema to the dorsal aspect of the foot. Patient is able move all toes. +2 pedal pulse. Patient has no pain to the lateral medial malleolus. Neuro: Cranial nerves II through XII intact, no focal neurological deficits. Skin: Clean dry and intact with no rash, purpura, petechiae, vesicles or pustules. Backs/flank: No CVA tenderness, no midline spinal tenderness, no deformity. Psych: Normal mood and affect. No SI, HI or acute psychosis. Const Vital Signs: 03/04/24 20:10 Temperature 97.2 F L Temperature Source Temporal Pulse Rate 86 Respiratory Rate 18 Blood Pressure 131/79 H Blood Pressure Mean 96 Pulse Ox 100 Oxygen Delivery Method Room Air <Dr. Archie Mcrae MD - Last Filed: 03/04/24 21:07> Physical Exam Const Vital Signs: 03/04/24 20:10 Temperature 97.2 F L Temperature Source Temporal Pulse Rate 86 Respiratory Rate 18 Blood Pressure 131/79 H Blood Pressure Mean 96 Pulse Ox 100 Oxygen Delivery Method Room Air MDM <RAMIREZ Caruso - Last Filed: 03/04/24 21:29> [facility] Treatment and Re-Evaluation :: Differential diagnosis includes however is not limited to: Metatarsal fracture, foot contusion, small bone fracture Patient appears generally well, patient appears nontoxic, vital signs are stable. Presenting to the emergency department the right foot pain after an injury to the right foot. X-rays of the right foot will be obtained, patient to take Tylenol prior to coming here. All radiologic examinations were read, reviewed by the emergency department attending. From these reads, a plan of care will be put in place. Patient's three-view x-ray of the right foot was unremarkable for any acute fracture. At this time, patient be given a postop shoe, started to ice, elevate, she will use Tylenol be Profen as needed for home. She is happy with the plan of care, she is instructed return for any worsening symptoms. Patient stable for discharge. <Dr. Archie Mcrae MD - Last Filed: 03/04/24 21:07> [facility] Narrative Medical decision making narrative: I have personally performed a face to face assessment of the patient and have reviewed the PATRICK Note. I performed a substantive portion of the visit including all aspects of the following. My kate findings include: History is [89year-old female her horse stepped on her right foot around 3 hours ago. No prior history, fracture or surgery to her right foot. Complaining of pain. No other injuries.] Exam is [well-appearing 20-year-old female. Vital signs stable afebrile. HEENT exam normal. Lungs clear. Heart regular rhythm no murmur. Chest wall nontender. Abdomen soft nontender. Back nontender. Moving all 4 extremities. Right hip, knee and ankle are nontender normal range of motion. Right foot neurovascular intact. Normal DP pulse. She is a bruise on top of her right foot. And contusion. Skins intact. There is tenderness. No gross bony deformity. She is able to wiggle her toes. Has normal touch sensation. Normal cap refill. Patient is awake and alert. No focal motor or sensory deficits.] Medical Decision Making [x-ray right foot. Contusion versus fracture.] Other additions or changes: [None] History & Record Review Discussion w/independent historian: Patient Discharge Plan Triage Chief Complaint: Lower Extremity Injury ED Midlevel Provider: Abdiel Chakraborty ED Provider: Archie Mcrae Dx/Rx/DC Orders Clinical Impression: Contusion of foot Instructions: Bruises (Contusions), Bone Contusion Prescriptions: No Action MAGIC MOUTH WASH (BMX) 180 mL suspension 10 ml PO Q8H PRN (Reason: pain, mild) Qty: 180 0RF Rx Instructions: diphenhydramine 12.5 mg/5 mL oral liquid 60 mL; aluminum-mag hydroxide-simethicone 400 mg-400 mg-40 mg/5 mL oral susp 60 mL; Lidocaine Viscous 2 % mucosal solution 60 mL; Per 180 mL Dha tablet 1 tab PO DAILY Vitamin D tablet 25 mcg PO DAILY Primary Care Provider: Care Physician,No Primary Referrals: Care Physician,No Primary [Primary Care Provider] - Activity Restrictions/Additional Instructions: Please follow-up outpatient. Surely ice and elevate. Disposition Disposition: Home, Self Care
--- NOTE | 2024-03-04 21:04 | RAD_ITS ---
EXAM: XR RIGHT FOOT COMPLETE, 3 OR MORE VIEWS CLINICAL INDICATION: trauma TECHNIQUE: Frontal, lateral and oblique views of the right foot. COMPARISON: No relevant prior studies available. FINDINGS: BONES/JOINTS: Unremarkable. No acute fracture. No subluxation. Normal alignment. Preservation of the joint space. No sclerotic or destructive changes observed. SOFT TISSUES: Unremarkable. No soft tissue swelling or gas. No radiopaque foreign body. RAD/Foot min 3 Views IMPRESSION: Negative right foot x-rays. Electronically Signed: Brian Bermudez MD at 21:30 EDT ,
[2024-03-04 22:13] VITALS: BP 112/60; PULSE 71; RESP 16; TEMP 36.2; O2SAT 100
== END 2024-03-04 22:14 | disposition home or self-care (01) ==
PROVIDERS: Emergency Provider Emergency Medicine; Visit Provider Emergency Medicine
DX: S90.32XA Contusion of left foot, initial encounter (principal); W55.89XA Other contact with other mammals, initial encounter
CPT/HCPCS: 73630; 99283

== ENCOUNTER 2024-09-07 20:52 | Emergency (ER) | payer MEDICAID, SELFPAY ==
[2024-09-07 20:53] VITALS: BP 157/77; PULSE 88; RESP 18; TEMP 36.2; O2SAT 99; BMI 39.7
[2024-09-07 21:35] LABS: Absolute Lymphocyte Count 2.48 X10^3/uL (0.83-4.51); Absolute Neutrophil Count 5.7 X10^3/uL (2.0-7.7); Basophil# 0.04 X10^3/uL; Basophil% 0.4 % (0-1); Eosinophils% 1.1 % (0-5); Hematocrit 40.2 % (37-47); Hemoglobin 13.4 g/dL (12.0-15.0); Lymphocyte # 2.48 X10^3/ul (0.83-4.51); Lymphocyte % 27.8 % (19-41); Mean Corp Hgb Conc 33.3 g/dL (32-36); Mean Corpuscular Hgb 28.5 pg (27.0-32.0); Mean Corpuscular Volume 85.4 fL (81-99); Mean Platelet Vol. 9.5 fl (6.2-12.0); Monocyte# 0.55 X10^3/uL; Monocyte% 6.2 % (0-10); NRBC Flagged by Analyzer 0 % (0-5); Neutrophil # 5.71 X10^3/uL (2.7-7.7); Neutrophil % 64.1 % (47-70); Platelet Count 223 K/mm3 (150-450); RBC Distribution Width CV 11.9 % (11.6-14.6); RBC Distribution Width SD 36.6 fl (35.1-43.9); Red Blood Count 4.71 M/mm3 (4.2-5.4); White Blood Count 8.9 K/mm3 (4.4-11.0)
[2024-09-07 21:44] LABS: Internal QC Validated? YES +Cl - CLEAR BKGD; Pregnancy, Serum, hCG Quali. NEGATIVE Negative
[2024-09-07 21:52] LABS: ALB/GLOB Ratio 1.3 RATIO (0.9-2.4); AST(SGOT) 15 U/L (15-37); Alanine Aminotransfer ALT/SGPT 21 U/L (13-56); Alkaline Phosphatase 46 U/L (45-117); Anion Gap 6 (5-15); BUN 13 mg/dL (7-18); BUN/Creat Ratio 17.6 RATIO (10-20); Calcium,Total 8.8 mg/dL (8.5-10.1); Chloride 108 mmol/L (98-107); Creatinine, Serum 0.74 mg/dL (0.55-1.02); EST Glomerular Filtration Rate 99 mL/min (>60); Est Glom Filt Rate - Afr Amer 119 mL/min (>60); Glucose 91 mg/dL (74-106); Potassium 3.3 mmol/L (3.5-5.1); Sodium Level 139 mmol/L (136-145)
--- NOTE | 2024-09-07 22:27 | US_ITS ---
EXAM: US PELVIS TRANSVAGINAL CLINICAL INDICATION: bleeding/pain TECHNIQUE: Transvaginal pelvic ultrasound was performed with grayscale and color Doppler imaging. Transvaginal imaging was used for better evaluation of the endometrium and adnexa. COMPARISON: CT scan of the abdomen and pelvis 12/08/2019. FINDINGS: UTERUS/CERVIX: Small 1 cm subserosal leiomyoma in the uterus. Anteverted. The uterus measures 10.2 x 5.6 x 3.7 cm. The endometrial stripe measures 1.0 cm in thickness. RIGHT OVARY: Right ovary is composed of a multiseptated cyst with an echogenic focus that measures up to 2.5 cm. A cyst involving the left ovary that is immediately adjacent to the right ovary may have been included as part of the measurement of the size of the right ovary. Blood flow is present in the right ovary. The right ovary measures 9.9 x 6.6 x 5.5 cm. LEFT OVARY: Left ovary 5.2, 3.6, 2.6 with an echogenic focus is measuring up to 2.5 cm. FREE FLUID: None. BLADDER: Empty bladder which cannot be evaluated with this probe. US/Transvaginal Non- IMPRESSION: 1. Bilateral dermoid cysts as was also seen on the prior CT scan. A cyst involving the left ovary that is immediately adjacent to the right ovary may have been included as part of the measurement of the size of the right ovary. No signs of torsion. 2. Small 1 cm subserosal leiomyoma in the uterus. Electronically Signed: Rohan Meehan MD at 23:55 EDT ,
[2024-09-07 22:44] LABS: Mucous, Urine 0 SEEN /hpf (<or=2+)
[2024-09-07 22:46] LABS: Color, Urine Yellow (Yellow); Glucose, Dipstick Normal (Normal); Ketone-Dipstick Negative (Negative); Leukocyte Esterase-Dipstick 25 /ul (Negative); Nitrite-Dipstick Negative (Negative); Occult Blood-Urine 250 /ul (Negative); Protein-Dipstick 30 mg/dl (Negative); Specific Gravity, Urine 1.015 (1.002-1.030); Urine Bilirubin Dipstick Negative (Negative); Urine Clarity Sl. Cloudy (Clear); Urine Urobilinogen Normal (Normal)
[2024-09-07 22:52] VITALS: BP 113/66; PULSE 71; RESP 18; O2SAT 98
[2024-09-07 23:05] LABS: Bacteria RARE /hpf (None Seen); Red Blood Cells-Urine 10-25 SEEN /hpf (0-5); Renal Epithelial Cells 0-5 SEEN /hpf (0-5); Squamous Epithelial Cells - UA 0-5 SEEN /hpf (5-10); White Blood Cells 0-5 SEEN /hpf (0-5)
[2024-09-08] VITALS: BP 130/68; PULSE 73; RESP 18; O2SAT 98
--- NOTE | 2024-09-08 00:02 | ED.VIS.FEGU ---
HPI HPI - Female History of Present Illness Chief Complaint: Vag Bld, Preg Informant: patient Narrative Narrative: The patient is a 29-year-old female with past medical history of dermoid cyst. She states that her last menstrual cycle ended in early July. She states she took a home test after missing her menstrual cycle and it was positive and she states this would place her at approximately 7 weeks . She denies any abdominal trauma but states that today after she was jogging her horse she had passage of a clot and since that time persistent ooze of blood. With her recent home test and now bleeding she is concern for potential miscarriage and comes in for evaluation [facility] Medical History (Updated 09/08/24 @ 00:[address] Emanuel Fam, DO) Open wound of right index finger due to cat bite Tonsillar abscess Postprocedural pelvic peritoneal adhesions Dermoid cyst of both ovaries Home Medications ?Medication ?Instructions ?Recorded ?Last Taken ?Type amoxicillin 875 mg-potassium 1 tab PO BID #10 tabs 08/23/24 Unknown Rx clavulanate 125 mg tablet Allergy/AdvReac Type Severity Reaction Status Date / Time NSAIDS (Non-Steroidal AdvReac Mild Nausea Verified 09/07/24 20:53 Anti-Inflamma Family History Other Hypertension Social History Smoking Status: Never smoker ROS ROS ED Constitutional Constitutional ED: Denies chills or fever(s) Eyes Eyes: Denies blurry vision or change in vision ENT ENT ED: Denies sore throat Cardiovascular Cardiovascular: Denies chest pain Respiratory/Chest Respiratory/Chest: Denies cough or dyspnea Gastrointestinal Gastrointestinal: Denies abdominal pain, diarrhea, nausea or vomiting Genitourinary Genitourinary ED: Reports other Details: Positive vaginal bleeding ; Denies dysuria or urinary frequency Musculoskeletal Musculoskeletal: Denies myalgias Integumentary Denies rash Neurologic Neurologic: Denies headache(s) Hematologic/Lymphatic Hematologic/Lymphatic: Denies easy bleeding or easy bruising EXAM Physical Exam Const Vital Signs: 09/07/24 20:53 09/07/24 22:52 09/08/24 00:00 Temperature 97.2 F L Temperature Source Temporal Pulse Rate 88 71 73 Respiratory Rate 18 18 18 Blood Pressure 157/77 H 113/66 130/68 H Blood Pressure Mean 103 81 86 Pulse Ox 99 98 98 Oxygen Delivery Method Room Air Positive well nourished and well developed General Appearance ED: well developed; Negative for pallor HEENT HEENT Narrative: Normocephalic atraumatic Eyes PERRL and EOMs intact bilaterally General Eye ED: Negative for pale conjunctiva or scleral icterus Neck supple Resp normal respiratory effort and clear to auscultation bilaterally Cardio regular rate and regular rhythm Rate: other Other Details: Heart is regular rate and rhythm without murmurs rubs or gallops Radial and carotid pulses are equal and symmetric GI normal to inspection, nondistended, normoactive bowel sounds, soft to palpation, non-tender, non-distended and no masses GI Narrative: No voluntary guarding or rigidity or pulsatile mass Auscultation: normoactive bowel sounds Palpation: soft Back/Spine no CVA tenderness Extremity normal to inspection and full ROM Neuro oriented x3, CN's II-XII intact bilaterally and no sensory deficits noted Sensorium / Orientation: alert Motor Exam: strength 5/5 throughout Psych mental status grossly normal Skin no rashes or lesions noted and no wounds General Skin Exam: Negative for jaundice or pallor MDM MDM MDM Narrative Medical decision making narrative: Patient arrived to the ER slightly hypertensive but otherwise with stable vitals. With the report of a positive home test and now vaginal bleeding there is concern for spontaneous miscarriage versus threatened miscarriage versus retained products of conception. Secondary to his basic labs were obtained. Labs revealed no clinically significant abnormalities and no signs of acute loss anemia or acute kidney injury or thrombocytopenia. Her test was negative and in order to ensure she does not have retained products of conception a transvaginal ultrasound was obtained. This revealed no signs of but did document dermoid and ovarian cyst. Based on the patient's negative test today and the fact she states she would be approximately 7 weeks I do feel that her home test was most likely triggered by the ovarian or dermoid cyst. At this time as she does not have signs of infection or acute kidney injury or acute blood loss anemia or thrombocytopenia there is no need for further workup in the ER and she can follow-up with her PHARMACEUTICAL SALES REPRESENTATIVE on an outpatient basis History & Record Review Discussion w/independent historian: Patient Lab Data Attestation: I reviewed the patient's lab results. Labs: Laboratory Results - last 24 hr 09/07/24 09/07/24 21:20 22:35 WBC 8.9 RBC 4.71 Hgb 13.4 Hct 40.2 MCV 85.4 MCH 28.5 MCHC 33.3 RDW Std Deviation 36.6 RDW Coeff of [place] 11.9 Plt Count 223 MPV 9.5 Immature Gran % (Auto) 0.400 Neut % (Auto) 64.1 Lymph % (Auto) 27.8 [place] % (Auto) 6.2 Eos % (Auto) 1.1 Baso % (Auto) 0.4 Absolute Neuts (auto) 5.7 Absolute Lymphs (auto) 2.48 Nucleated RBC % 0 Sodium 139 Potassium 3.3 L Chloride 108 H Carbon Dioxide 26.0 Anion Gap 6 BUN 13 Creatinine 0.74 Estim Creat Clear Calc 156.90 Est GFR (MDRD) Af Amer 119 Est GFR (MDRD) Non-Af 99 BUN/Creatinine Ratio 17.6 Glucose 91 Calcium 8.8 Total Bilirubin 0.30 AST 15 ALT 21 Alkaline Phosphatase 46 Total Protein 7.0 Albumin 4.0 Globulin 3.0 Albumin/Globulin Ratio 1.3 Serum , Qual NEGATIVE Urine Color Yellow Urine Clarity Sl. Cloudy Urine pH 6.0 Ur Specific [place] 1.015 Urine Protein 30 H Urine Glucose (UA) Normal Urine Ketones Negative Urine Occult Blood 250 H Urine Nitrite Negative Urine Bilirubin Negative Urine Urobilinogen Normal Ur Leukocyte Esterase 25 H Urine RBC 10-25 SEEN Urine WBC 0-5 SEEN Ur Squamous Epith Cells 0-5 SEEN Ur Renal Epithelial Cell 0-5 SEEN Urine Bacteria RARE Urine Mucus 0 SEEN Radiography Diagnostic Testing: Clinical Impression(s) from Imaging Studies Transvaginal US 09/07/24 22:27 IMPRESSION: 1. Bilateral dermoid cysts as was also seen on the prior CT scan. A cyst involving the left ovary that is immediately adjacent to the right ovary may have been included as part of the measurement of the size of the right ovary. No signs of torsion. 2. Small 1 cm subserosal leiomyoma in the uterus. Electronically Signed: Rohan Meehan MD at 23:55 EDT , Discharge Plan Triage Chief Complaint: Vag Bld, Preg ED Provider: Emanuel Fam Dx/Rx/DC Orders Clinical Impression: Dermoid cyst, Ovarian cyst Instructions: ED Ovarian Cyst Prescriptions: No Action amoxicillin-pot clavulanate 875-125 mg tablet 1 tab PO BID Qty: 10 0RF Primary Care Provider: Vi Michel Referrals: Vi Michel MD [Primary Care Provider] - Activity Restrictions/Additional Instructions: Please follow-up with your PHARMACEUTICAL SALES REPRESENTATIVE as your ultrasound today showed both ovarian and dermoid cyst. Return to the ER should you have any further concerns Print Language: Macedonian Disposition Disposition: Home, Self Care Discharge Date/Time: 09/08/24 00:23
== END 2024-09-08 00:23 | disposition home or self-care (01) ==
PROVIDERS: Emergency Provider Emergency Medicine; PCP Family Medicine; Visit Provider Emergency Medicine
DX: D27.0 Benign neoplasm of right ovary (principal); D27.1 Benign neoplasm of left ovary
CPT/HCPCS: 76830; 80053; 81001; 84703; 85025; 99283; A4216